=== PATIENT | female | born 1960 ===

== ENCOUNTER 2025-07-16 12:58 | Inpatient (IN) | payer MEDICARE, MEDICAID, SELFPAY ==
--- OUTSIDE RECORDS SUMMARY | 2025-07-14 13:57 | XMS_ITS | Encounter Summary ---
Author Organization [facility] Address [address] [place] [address] Care Team Providers Care Leak Operator [employer] Name Role Phone Abdoul Marques MD Primary Care Provider [phone] Reason for Referral * Eval and Treat (Routine) - Open Specialty Diagnoses / Procedures Referred By Bennie t Referred To Contact Trauma Surgery / General Surgery Diagnoses Hematoma Procedures NV OFFICE/OUTPATIENT ESTABLISHED MOD MDM 30 MIN NV OFFICE/OUTPATIENT NEW MODERATE MDM 45 MINUTES Christopher Mathis DO [address] [address] Phone: tel: fax: [facility] General [facility] Tra[facility] Surgery-[address] [place] [address] Phone: tel: fax: Referral ID Status Reason Start Date Expiration Date Visits Re quested Visits Authorized [id number] Open 07/14/2025 07/15/2026 1 1 Reason for Visit * Reason Comments Wound Check RLE Encounter Details Date Type Department Care Team (Late st Contact Info) Description 07/14/2025 1:57 PM CDT - 07/14/2025 7:52 PM CDT Emergency [facility] Emergency Medicine [address] [place] [address] Christopher Mathis DO [address] [phone] Keven Kim, [address] [place] [address] [address] [phone] Hematoma (Primary Dx) Discharge Disposition: Home or Self Care Social History Tobacco Use Types Packs/Day Years Used Date Smoking Tobacco: Every Day Cigarettes 1 50.7 Started: 1974 Passive Smoke Exposure: Current Smokeless Tobacco: Never Alcohol Use Standard Drinks/Week Comments Yes 42 (1 standard drink = 0.6 oz pu re alcohol) Feeling Safe Answer Date Recorded Are you in a relationship wi th someone who hurts you emotionally and/or physically? No 07/14/2025 Comments No Sex and Gender Information Value Date Recorded Sex Assigned at Not on file Legal Sex Female 12:55 PM CDT Gender Identity Not on file Sexual Orientation Not on file documented as of this encounter Last Filed Vital Signs Vital Sign Reading Time Taken Comments Blood Pressure 114/74 07/14/2025 7:30 PM CDT Pulse 66 07/14/2025 7:30 PM CDT Temperature 35.9 C (96.6 F) 07/14/2025 1:59 PM CDT Respiratory Rate 16 07/14/2025 7:30 PM CDT Oxygen Saturation 99% 07/14/2025 7:30 PM CDT Inhaled Oxygen Concentration - - Weight 61.7 kg (136 lb) 07/14/2025 1:59 PM CDT Height 160 cm (5' 3 ) 07/14/2025 1:59 PM CDT Body Mass Index 24.09 07/14/2025 1:59 PM CDT documented in this encounter Discharge Instructions * Discharge Instructions* Keven Kim DO - 07/14/2025 7:32 PM CDT Please take [id number] Motrin, ibuprofen, alternating with acetaminophen/Tylenol every 4 hours as needed for pain. The sulfamethoxazole-trimethoprim/Bactrim DS has been E prescribed to the [facility] pharmacy in [place] When using antibiotics please take [id number] probiotics and/or yogurt to help prevent diarrhea and yeast infections. * Attachments The following attachments cannot be sent through Care Everywhere. * Contusion (Burundian) * Care for a Skin Wound: Video (Burundian) * RICE: General Info (Burundian) * Antibiotics: General Info (Burundian) documented in this encounter Medications at Time of Discharge sulfamethoxazole-t rimethoprim (BACTRIM DS) 800-160 mg tablet Take 1 Tablet by mouth 2 times daily for 7 days. 14 Tablet 07/14/2025 07/21/2025 metoprolol succinate (TOPROL XL) 100 mg Extended Release 24 hour tabletIndications: Benign hypertension Take 1 Tablet (100 mg) by mouth daily with breakfast. 90 Tablet 3 06/05/2025 documented as of this encounter ED Notes * Noah Ca RN - 07/14/2025 6:[address] Mathis calling [facility] * Noah Ca RN - 07/14/2025 6:[address] [facility] * Noah Ca RN - 07/14/2025 6:02 PM CDT Patient's daughter requested this RN into the room. Entered room to find patient developing a red rash throughout her body and complaining of itching. Stopped Vancomycin immediately and notified Dr Mathis. * Margi Suarez RN - 07/14/2025 4:20 PM CDT Patient transported via wheelchair. Patient transported to [place] with Tech. * Noah Ca RN - 07/14/2025 2:15 PM CDT Trinidad Gibbs 65 y.o. female, arrived to the ED via TRANSPORTATION: private vehicle for complaints of Chief Complaint Patient presents with Wound Check RLE This patient arrives with her daughter for a Wound Check for a wound on her Right AnteroLateral Vela. Patient ambulates well to room without signs of distress. States she has recently started a workup for poor lower extremity circulation. States approximately 3 weeks ago was outside and misjudged astep down and fell approximately 1 foot to a lower ledge scraping the Right Anterior Vela on a piece of wood. Reports she was not evaluated after the incident. Patient does have a hematoma with multiple scabs to the Right Anterolateral Vela. Reports occasional bleeding from the scabs, denies any purulent drainage, fevers, or other injuries from the incident. Vitals taken, patient placed on monitor, clothing removed as needed per policy, privacy provided to patient. Respiratory: WDL - Regular rhythm, symmetrical chest expansion, no dyspnea , Cardiac/Circulatory: WDL - No numbness or tingling, no chest pain , Skin: Swelling and Hematoma, patient is Alert and Oriented x4, pain scale: 10/10, christina etllo; bleeding: without any bleeding noted. Behavior during evaluation: appropriate. Belongings secured, patient Weapons assessment: denied possession of any weapons or firearms at this time. Patient comforted, all questions answered to the best of the staff's ability, education performed, and left patient in the room with the call light in reach, bed in lowest position, wheels locked, side rails up. * Keven Kim DO - 07/14/2025 1:55 PM CDT Images from the original note were not included. HISTORY OF PRESENT ILLNESS History of Present Illness The patient presents for a wound on her leg. She is accompanied by her daughter. The patient has been dealing with this wound for approximately 3 weeks. Despite being cautious not to bump it, the wound began to ooze yesterday. Upon inspection, she found that the scab had adhered to her pants. The wound has been leaking for over a week, but she reports no fever or chills. She describes an unusual sensation since the infection was released. The wound has been draining a dark fluid, but she has not noticed any purulent. She also mentions bruising around the wound and swelling in her foot, which has since subsided. She suspects that there might be a foreign object lodged in her leg. The pain from the wound disrupts her sleep. She has not taken any antibiotics for this condit ion. The patient consumes several beers daily but does not experience withdrawal symptoms when she abstains. She reports no liver issues. Occupation: disabled Alcohol: The patient consumes several beers daily. Sleep: The pain from the wound disrupts her sleep. PAST SURGICAL HISTORY: She has a history of a large kidney stone, which was treated with lithotripsy. PAST MEDICAL HISTORY REVIEWED MEDICAL: Patient has a past medical history of Hypertension. SURGICAL: Patient has a past surgical history that includes spinal surgery; shoulder arthroscopy (Right); knee arthroscopy (Left); ureteral stent placement; tubal ligation; and trigger finger repair (Right). ALLERGIES Codeine and Vancomycin PHYSICAL EXAM INITIAL VS BP: (!) 156/70 (07/14/25 135), Heart Rate: 83 bpm (07/14/251358), Resp: 15 (07/14/251358), Pulse: 65 (07/14/25 1430), Temp: (!) 96.6 ??F (35.9 ??C) (07/14/251358), Temp src: Temporal (07/14/251358), SpO2: 100 % (07/14/251358), Height: 5' 3 (160 cm) (07/14/251358), Weight: 61.7 kg (136 lb) (0 07/14/251358), BMI (Calculated): 24.1 (07/14/251358) No LMP recorded. Patient is postmenopausal. Blood pressure 114/74, pulse 66, temperature (!) 96.6 ??F (35.9 ??C), temperature source Temporal, resp. rate 16, height 5' 3 (1.6 m), weight 61.7 kg (136 lb), SpO2 99%. Physical Exam Physical Exam Extremities: Swelling and bruising noted in the foot. Presence of a wound on the leg with clear fluid drainage and signs of infection. Warmth noted in the area surrounding the wound. Skin: Presence of a wound on the leg with clear fluid drainage and signs of infection. Warmth notedin the area surrounding the wound. DIAGNOSTICS LAB: CBC WITH DIFFERENTIAL - Abnormal Result Value WBC 13.3 (*) RBC 4.69 HEMOGLOBIN 14.6 HEMATOCRIT 42.0 MCV 89.6 MCH 31.1 MCHC 34.8 RDW 13.2 RDW-STDEV 43.3 PLATELETS 452 (*) MPV 9.2 (*) NEUTROPHILS 75 (*) LYMPHOCYTES 14 (*) MONOCYTES 9 EOSINOPHILS 1 BASOPHILS 0 IMMATURE GRANULOCYTES 0 NEUTROPHIL ABSOLUTE 9.98 (*) LYMPHOCYTE ABSOLUTE 1.83 MONOCYTE ABSOLUTE 1.25 (*) EOSINOPHIL ABSOLUTE 0.12 BASOPHILS ABSOLUTE 0.04 IMMATURE GRANULOCYTES ABSOLUTE 0.05 COMPREHENSIVE METABOLIC PANEL - Abnormal SODIUM 137 POTASSIUM 4.0 CHLORIDE 99 CO2 25 CALCIUM 9.4 BUN 12 CREATININE 0.72 GLUCOSE 91 TOTAL PROTEIN 8.5 ALBUMIN 4.6 BILIRUBIN TOTAL 0.5 ALKALINE PHOSPHATASE 119 (*) AST 24 ALT <5 GFR >60 ANION GAP 13 LACTIC ACID - Normal LACTIC ACID 1.8 MAGNESIUM LEVEL - Normal MAGNESIUM 1.7 ANAEROBIC/AEROBIC CULTURE W GRAM STAIN MRSA PCR RAPID SCREEN BLOOD CULTURE BLOOD CULTURE BLOOD CULTURE BLOOD CULTURE RADIOLOGY: CT LOW EXT W CONTRAST RIGHT Radiologist Impression IMPRESSION: Large subcutaneous suspected fluid collection is seen at the site of interest that shows rim enhancement and intermediate attenuation. Leading differential considerations include a hematoma especially if there has been recent trauma versus an abscess. Ultrasound is recommended for further characterization. Ultimately aspiration may be needed. EKG: PROCEDURES Procedures MEDICAL DECISION MAKING AND PLAN OF CARE Assessment & Plan 1. Leg wound: - The leg wound has been leaking for more than a week and appears to be infected, potentially with an underlying abscess. - The physical exam reveals warmth in the area, swelling, and a pocket of fluid under the skin. - A CT scan of the leg will be ordered to assess the extent of the infection. Blood work, includinga CBC and infection markers, will be conducted to monitor for systemic infection. If the CT scan confirms a deep abscess, a surgical consultation will be necessary for potential incision and drainage. 2. Alcohol abuse: - The patient reports drinking several beers every day but has not experienced any withdrawal symptoms or liver issues. No immediate intervention is planned, but monitoring for any potential complications will be necessary. ED Course as of 07/14/251940Jul 14, [address] scan results came back and went to speak with the patient. I received this patient from the nurse practitioner who left a little while ago at the end of her shift. No concern more for hematoma based on the appearance on CT scan versus abscess. She is a very minimal white count. No fevers. There is some redness but the drainage is more bloody fluid. After discussed with her about 3 weeks ago she had an injury where her leg was crushed between a trailer and has been swollen ever since. She states that it started to drain could have a dark discolored looking blood over the last couple of days after one of her scabs fell off. The pain is not increased. The swelling is not increased. She has a little bit more redness after catching her scab and pulling it back on her jeans the other day. Patient did receive IV antibiotics while waiting labs or results based on the appearance however at this time it seems to be more of a hematoma. She did have a rash and itching at the end of her vancomycin so we stopped and gave her some Benadryl. She is not anaphylaxis appears well. [MH] ED Course User Index [MH] Christopher Mathis, DO Medical Decision Making Discussed results, including the CT, with the patient. Also discussed need to follow-up with Dr. Welch, for wound care, possible I&D/drainage of the wound. Amount and/or Complexity of Data Reviewed Labs: ordered. Radiology: ordered. Discussion of management or test interpretation with external provider(s): Dr. Wells orthopedist, advised follow-up with wound clinic. Transfer nurse stated that Dr. Shar Welch, was on-call. A referral has been ordered to his office. Risk OTC drugs. Prescription drug management. Clinical Scoring & Consults Medications Administered During the ED Stay from 07/14/2025 1356 to 07/14/20251940 Date/Time Order Dose Route Action 07/14/2025 1704 CDT sodium chloride flush injection 5 mL 5 mL IV Given 07/14/2025 1549 CDT oxyCODONE-acetaminophen (PERCOCET) 5-325 mg per tablet 1 Tablet 1 Tablet Oral Given 07/14/2025 1802 CDT vancomycin (VANCOCIN) 1,000 mg in sodium chloride 0.9 % 250 mL IVPB 0 mg IV Stopped 07/14/2025 1705 CDT vancomycin (VANCOCIN) 1,000 mg in sodium chloride 0.9 % 250 mL IVPB 1,000 mg IVNew Bag 07/14/2025 1708 CDT cefePIME (MAXIPIME) 1,000 mg in sodium chloride 0.9 % 50 mL IVPB 0 mg IV Stopped 07/14/2025 1638 CDT cefePIME (MAXIPIME) 1,000 mg in sodium chloride 0.9 % 50 mL IVPB 1,000 mg IV New Bag 07/14/2025 1642 CDT iopamidoL (ISOVUE-300) 61% injection (single-use vial) 100 mL 100 mL IV Contrast Given 07/14/2025 1712 CDT nicotine (NICODERM CQ) 21 mg/24 hr transdermal patch 1 Patch 1 Patch Transdermal Applied 07/14/2025 1808 CDT diphenhydrAMINE (BENADRYL) injection 25 mg 25 mg IV Given . New Prescriptions for this Encounter SULFAMETHOXAZOLE-TRIMETHOPRIM (BACTRIM DS) 800-160 MG TABLET Take 1 Tablet by mouth 2 times daily for 7 days. LAST VS BP: 114/74 (07/14/251929), Heart Rate: 83 bpm (07/14/251358), Resp: 16 (07/14/251929), Pulse: 66(07/14/251929), Temp: (!) 96.6 ??F (35.9 ??C) (07/14/25 135), Temp src: Temporal (07/14/251358),SpO2: 99 % (07/14/251929) CLINICAL IMPRESSION Diagnosis Diagnosis Comment Added By Time Added Hematoma [T14.8XXA] Right leg: large subcutaneous suspected fluid collection Christopher Mathis DO 07/14/2025 7:22 PM DISPOSITION, EDUCATION AND MEDICATION RECONCILIATION Medications reconciled. See after visit summary for patient education on discharged patients. ED Disposition ED Disposition Discharge Condition Stable User Keven Kim DO Date/Time Sat Jul 14, 2025 7:39 PM Comment -- documented in this encounter Miscellaneous Notes * Gen AI WINNIE - GENERATIVE AI HANDOFF NOTE - 07/14/2025 8:40 PM CDT ## ER_course: ## # DIAGNOSIS: Hematoma in the right leg with a large subcutaneous suspected fluid collection. The patient, Trinidad Gibbs, a 65-year-old female, presented to the ED with a wound on her right anterolateral vela, which had been leaking for over a week. She reported a fall approximately three weeks ago, resulting in a hematoma with multiple scabs. The wound began to ooze and was suspected to have an underlying abscess. The patient experienced pain rated at 10/10, disrupting her sleep, and reported occasional bleeding from the scabs. # Abnormal findings included a high WBC count of 13.3, elevated platelets at 452, and a CT scan showing a large subcutaneous fluid collection with rim enhancement, suggesting a hematoma or abscess. # Medications administered during the ED stay included IV antibiotics (vancomycin and cefepime), which were stopped due to a rash and itching, and Benadryl was given. The patient was also given oxycodone-acetaminophen for pain and a nicotine patch. # The final impression was more consistent with a hematoma rather than an abscess, and the patient was discharged in stable condition. ## Follow_up_orders: ## # The patient was prescribed sulfamethoxazole-trimethoprim (Bactrim DS) 800-160 mg tablet to be taken twice daily for 7 days. # A follow-up with Dr. Welch for wound care and possible incision and drainage of the wound was recommended. A referral to Dr. Welch's office was ordered. # An ultrasound was recommended for further characterization of the fluid collection, and aspiration may be needed (PENDING AT DISCHARGE). ## Home_Situation: ## # The patient was accompanied by her daughter, indicating some level of caregiver support. No specific transportation or financial issues were noted in the ER notes. documented in this encounter Plan of Treatment Pending Results Name Type Priority Associated Diagnoses Date /Time ANAEROBIC/AEROBIC CULTURE W GRAM STAIN Microbiology Stat 07/14/2025 3:16 PM CDT BLOOD CULTURE Microbiology Stat 5 2:55 PM CDT BLOOD CULTURE Microbiology Stat 5 3:00 PM CDT BLOOD CULTURE Microbiology Stat 2:55 PM CDT BLOOD CULTURE Microbiology Stat 3:00 PM CDT Scheduled Orders Name Type Priority Associated Diagnoses Orde r Schedule BLOOD CULTURE Microbiology Routine ONE TIME for 1 Occurrences starting 07/14/2025 until 07/14/2025 BLOOD CULTURE Microbiology Routine ONE TIME for 1 Occurrences starting 07/14/2025 until 07/14/2025 BLOOD CULTURE Microbiology Stat Once for 1 Occurrences starting 07/14/2025 until 07/14/2025, 1 completed BLOOD CULTURE Microbiology Stat Once for 1 Occurrences starting 07/14/2025 until 07/14/2025 Scheduled Referrals Name Type Priority Associated Diagnoses Orde r Schedule AMB REFERRAL TO GENERAL SURGERY Outpatient Referral Routine Hematoma Ordered: 07/14/2025 documented as of this encounter Procedures Procedure Name Priority Date/Time Associated Diagnosis Comments CT LOW EXT W CONTRAST RIGHT Stat 07/14/2025 4:42 PM CDT MRSA PCR RAPID SCREEN Stat 07/14/2025 3:55 PM CDT ANAEROBIC/AEROBIC CULTURE W GRAM STAIN Stat 07/14/2025 3:16 PM CDT LACTIC ACID Stat 07/14/2025 2:55 PM CDT CBC WITH DIFFERENTIAL Stat 07/14/2025 2:55 PM CDT MAGNESIUM LEVEL Stat 07/14/2025 2:55 PM CDT COMPREHENSIVE METABOLIC PANEL Stat 07/14/2025 2:55 PM CDT documented in this encounter Results * CT LOW EXT W CONTRAST RIGHT (07/14/2025 4:42 PM CDT) Anatomical Region Laterality Modality Lower Extremity Computed Tomogra phy 07/14/2025 4:15 PM CDT Impressions 07/14/2025 5:43 PM CDT IMPRESSION: Large subcutaneous suspected fluid collection is seen at the site of interest that shows rim enhancement and intermediate attenuation. Leading differential considerations include a hematoma especially if there has been recent trauma versus an abscess. Ultrasound is recommended for further characterization. Ultimately aspiration may be needed. Narrative 07/14/2025 5:[address] LOW EXT W CONTRAST RIGHT 07/14/2025 4:42 PM Reason For Exam: Soft tissue mass, lower leg, deep. Diagnosis: See Reason for Exam. COMPARISON: None Nonionic IV contrast was utilized FINDINGS: No acute fracture, subluxation, dislocation, or destructive osseous lesion is seen. Joint spaces are preserved. Along the anterior portion of the lower extremity there is a rim-enhancing subcutaneous 5.9 x 2.2 x 8.9 cm suspected complex fluid collection. Mild adjacent subcutaneous stranding is noted. Procedure Note Sen Payne MD - 07/14/2025 CT LOW EXT W CONTRAST RIGHT 07/14/2025 4:42 PM Reason For Exam: Soft tissue mass, lower leg, deep. Diagnosis: See Reason for Exam. COMPARISON: None Nonionic IV contrast was utilized FINDINGS: No acute fracture, subluxation, dislocation, or destructive osseous lesion is seen. Joint spaces are preserved. Along the anterior portion of the lower extremity there is a rim-enhancing subcutaneous 5.9 x 2.2 x 8.9 cm suspected complex fluid collection. Mild adjacent subcutaneous stranding is noted. IMPRESSION: Large subcutaneous suspected fluid collection is seen at the site of interest that shows rim enhancement and intermediate attenuation. Leading differential considerations include a hematoma especially if there has been recent trauma versus an abscess. Ultrasound is recommended for further characterization. Ultimately aspiration may be needed. Brunilda Holguin [facility] CT ORDERABLES Final Resul t * (ABNORMAL) MRSA PCR RAPID SCREEN (07/14/2025 3:55 PM CDT) MRSA PCR RESULT MRSA detected( A) MRSA not detected 07/15/2025 6:06 PM CDT [facility] Surveillance ANTERIOR NARES SWAB / Unknown 07/14/2025 3:55 PM CDT 07/14/2025 3:58 PM CDT Narrative [facility] - 07/15/2025 6:06 PM CDT MRSA detected called to [facility] by ORIANA CARTAGENA on 07/15/2025 at 6:05 PM with verbal readback. This assay is used to detect Methicillin-Resistant S. aureus (MRSA) colonization of the nares. PLEASE NOTE: This test has not been approved to monitor effectiveness of MRSA decolonization. Residual DNA may temporarily be present after successful decolonization. This test was performed using an FDA approved screening methodology. [facility] MICROBIOLOGY - GENERAL ORDE RABLES Final Result Performing Organization Address [facility] Co de Phone Number [facility] CLIA # [id number] [address] [address] * MAGNESIUM LEVEL (07/14/2025 2:55 PM CDT) MAGNESIUM 1.7 1.6 - 2.4 mg/dL 07/14/2025 3:30 PM CDT [facility] Blood Venipuncture / Unknown 07/14/2025 2:55 PM CDT 07/14/2025 3:09 PM CDT [facility] CHEMISTRY ORDERABLES Final Result Performing Organization Address [facility] Co de Phone Number [facility] CLIA # [id number] [address] [place] [id number] * LACTIC ACID (07/14/2025 2:55 PM CDT) LACTIC ACID 1.8 <=2.0 mmol/L 07/14/2025 3:30 PM CDT [facility] Blood BLOOD SPECIMEN / Unknown Venipuncture / Unknown 07/14/2025 2:55 PM CDT 07/14/2025 3:12 PM CDT [facility] CHEMISTRY ORDERABLES Final Result Performing Organization Address [facility]/ZIP Co de Phone Number [facility] CLIA # [id number] [address] [place] [id number] * (ABNORMAL) COMPREHENSIVE METABOLIC PANEL (07/14/2025 2:55 PM CDT) [facility] SODIUM 137 136 - 145 mmol/L 07/14/2025 3:[address] [facility] POTASSIUM 4.0 3.5 - 5.1 mmol/L 07/14/2025 3:[address] [facility] CHLORIDE 99 98 - 107 mmol/L 07/14/2025 3:[address] [facility] CO2 25 22 - 29 mmol/L 07/14/2025 3:[address] [facility] CALCIUM 9.4 8.8 - 10.2 mg/dL 07/14/2025 3:[address] [facility] BUN 12 8 - 23 mg/dL 07/14/2025 3:[address] [facility] CREATININE 0.72 0.51 - 0.95 mg/dL 07/14/2025 3:[address] [facility] GLUCOSE 91 74 - 99 mg/dL 07/14/2025 3:[address] [facility] TOTAL PROTEIN 8.5 6.6 - 8.7 g/dL 07/14/2025 3:[address] [facility] ALBUMIN 4.6 3.5 - 5.2 g/dL 07/14/2025 3:[address] [facility] BILIRUBIN TOTAL 0.5 0.0 - 1.2 mg/dL 07/14/2025 3:[address] [facility] ALKALINE PHOSPHATASE 119(H) 35 - 104 U/L 07/14/2025 3:[address] [facility] AST 24 0 - 35 U/L 07/14/2025 3:[address] [facility] ALT <5 0 - 35 U/L 07/14/2025 3:[address] [facility] GFR >60 >=60 mL/min/1.7 3 sq meter 07/14/2025 3:[address] [facility] Comment:eGFR calculated with 2020 CKD-EPI equation. Vegetarian diet, extremely high or low muscle mass, and may affect results. Cystatin C with Glomerular Filtration Rate is a suitable alternative for these patients. ANION GAP 13 5 - 20 mmol/L 07/14/2025 3:[address] [facility] Blood Venipuncture / Unknown 07/14/2025 2:55 PM CDT 07/14/2025 3:09 PM CDT Brunilda Yan [facility] CHEMISTRY ORDERABLES Final Result [facility] CLIA # [id number] [address] [place] [id number] * (ABNORMAL) CBC WITH DIFFERENTIAL (07/14/2025 2:55 PM CDT) WBC 13.3(H) 4.0 - 10.0 K/uL 07/14/2025 3:[address] [facility] RBC 4.69 3.93 - 5.22 M/uL 07/14/2025 3:[address] [facility] HEMOGLOBIN 14.6 11.2 - 15.7 g/dL 07/14/2025 3:[address] [facility] HEMATOCRIT 42.0 34.1 - 44.9 % 07/14/2025 3:[address] [facility] MCV 89.6 79.4 - 94.8 fL 07/14/2025 3:[address] [facility] MCH 31.1 25.6 - 32.2 pg 07/14/2025 3:[address] [facility] MCHC 34.8 32.2 - 35.5 g/dL 07/14/2025 3:[address] [facility] RDW 13.2 11.0 - 14.5 % 07/14/2025 3:[address] [facility] RDW-STDEV 43.3 36.9 - 56.9 fL 07/14/2025 3:16 PM [facility] [facility] PLATELETS 452(H) 163 - 337 K/uL 07/14/2025 3:[address] [facility] MPV 9.2(L) 10.0 - 14.8 fL 07/14/2025 3:[address] [facility] NEUTROPHILS 75(H) 34 - 71 % 07/14/2025 3:[address] [facility] LYMPHOCYTES 14(L) 19 - 52 % 07/14/2025 3:[address] [facility] MONOCYTES 9 5 - 13 % 07/14/2025 3:16 PM T [facility] EOSINOPHILS 1 1 - 6 % 07/14/2025 3:[address] [facility] BASOPHILS 0 0 - 1 % 07/14/2025 3:[address] [facility] IMMATURE GRANULOCYTES 0 % 07/14/2025 3:[address] [facility] NEUTROPHIL ABSOLUTE 9.98(H) 1.56 - 6.13 K/uL 07/14/2025 3:[address] [facility] LYMPHOCYTE ABSOLUTE 1.83 1.20 - 3.40 K/uL 07/14/2025 3:[address] [facility] MONOCYTE ABSOLUTE 1.25(H) 0.24 - 0.36 K/uL 07/14/2025 3:[address] [facility] EOSINOPHIL ABSOLUTE 0.12 0.04 - 0.36 K/uL 07/14/2025 3:[address] [facility] BASOPHILS ABSOLUTE 0.04 0.01 - 0.08 K/uL 07/14/2025 3:[address] [facility] IMMATURE GRANULOCYTES ABSOLUTE 0.05 K/uL 07/14/2025 3:[address] [facility] Blood Venipuncture / Unknown 07/14/2025 2:55 PM CDT 07/14/2025 3:12 PM CDT Brunilda Yan [employer]OX TRUCK DRIVER HEMATOLOGY ORDERABLES Final Result [facility] CLIA # [id number] [address] [place] [address] documented in this encounter Visit Diagnoses Diagnosis Hematoma- Primary Contusion of unspecified site documented in this encounter Administered Medications Inactive Administered Medications - up to 3 most recent administrations Medication Order MAR Action Action Date Dose Rate Site cefePIME (MAXIPIME) 1,000 mg in sodium chloride 0.9 % 50 mL IVPB 1,000 mg, IV, ONE TIME ONLY, 1 dose, On 07/14/25 at 1545, Routine, Antibiotic Indication: Wound / Cellulitis / Abscess New Bag 07/14/2025 4:38 PM CDT 1,000 mg 118 mL/hr diphenhydrAMINE (BENADRYL) injection 25 mg 25 mg, IV, ONE TIME ONLY, 1 dose, On 07/14/25 at 1815, Routine Given 07/14/2025 6:08 PM CDT 25 mg iopamidoL (ISOVUE-300) 61% injection (single-use vial) 100 mL 100 mL, IV, INTRA-PROCEDURE ONCE, 1 dose, Starting on 07/14/25 at 1612, Until 07/14/25 at 1642, Routine Contrast Given 07/14/2025 4:42 PM CDT 100 mL nicotine (NICODERM CQ) 21 mg/24 hr transdermal patch 1 Patch 1 Patch, Transdermal, DAILY, First dose on 07/14/25 at 1715, Until Discontinued, Stat Applied 07/14/2025 5:12 PM CDT 1 Patch Shoulder, Right oxyCODONE-acetaminoph en (PERCOCET) 5-325 mg per tablet 1 Tablet 1 Tablet, Oral, ONE TIME ONLY, 1 dose, On 07/14/25 at 1545, Stat Given 07/14/2025 3:49 PM CDT 1 Tablet sodium chloride flush injection 5 mL 5 mL, IV, SEE ADMIN INSTRUCTIONS, Starting on 07/14/25 at 1430, Until 07/14/25 at 2152, Routine Given 07/14/2025 5:04 PM CDT 5 mL sulfamethoxazole-trim ethoprim (BACTRIM DS) 800-160 mg per tablet 1 Tablet 1 Tablet, Oral, ONE TIME ONLY, 1 dose, On 07/14/25 at 1945, Routine, Antibiotic Indication: Wound / Cellulitis / Abscess Given 07/14/2025 7:47 PM CDT 1 Tablet vancomycin (VANCOCIN) 1,000 mg in sodium chloride 0.9 % 250 mL IVPB 1,000 mg, IV, ONE TIME ONLY, 1 dose, On 07/14/25 at 1545, Routine, Antibiotic Indication: Wound / Cellulitis / Abscess New Bag 07/14/2025 5:05 PM CDT 1,000 mg 285 mL/hr documented in this encounter Active and Recently Administered Medications Times are shown in CDT. Scheduled Medication Order 07/12/2025 07/13/2025 07/14/2025 cefePIME (MAXIPIME) 1,000 mg in sodium chloride 0.9 % 50 mL IVPB (COMPLETED) 1,000 mg, IV, ONE TIME ONLY, 1 dose, On 07/14/25 at 1545, Routine, Antibiotic Indication: Wound / Cellulitis / Abscess 1638 (New Bag - Prov ider: Noah Ca RN)1708 (Stopped - Provider: Noah Ca RN) diphenhydrAMINE (BENADRYL) injection 25 mg (COMPLETED) 25 mg, IV, ONE TIME ONLY, 1 dose, On 07/14/25 at 1815, Routine 1808 (Given - Provid er: Noah Ca RN) iopamidoL (ISOVUE-300) 61% injection (single-use vial) 100 mL (COMPLETED) 100 mL, IV, INTRA-PROCEDURE ONCE, 1 dose, Starting on 07/14/25 at 1612, Until 07/14/25 at 1642, Routine 1642 (Contrast Given - Provider: Ginna Faustin, RT) nicotine (NICODERM CQ) 21 mg/24 hr transdermal patch 1 Patch 1 Patch, Transdermal, DAILY, First dose on 07/14/25 at 1715, Until Discontinued, Stat 1712 (Applied - Prov ider: Noah Ca RN)1952 (Due: Removed - Provider: PROVIDER, DISCHARGE PATIENT - Comment: Time automatically adjusted from order being discontinued) oxyCODONE-acetaminophen (PERCOCET) 5-325 mg per tablet 1 Tablet (COMPLETED) 1 Tablet, Oral, ONE TIME ONLY, 1 dose, On 07/14/25 at 1545, Stat 1549 (Given - Provid er: Noah Ca RN) sodium chloride flush injection 5 mL(Linked Group 1) 5 mL, IV, SEE ADMIN INSTRUCTIONS, Starting on 07/14/25 at 1430, Until 07/14/25 at 2151, Routine 1704 (Given - Provid er: Noah Ca RN) sulfamethoxazole-trimethoprim (BACTRIM DS) 800-160 mg per tablet 1 Tablet (COMPLETED) 1 Tablet, Oral, ONE TIME ONLY, 1 dose, On 07/14/25 at 1945, Routine, Antibiotic Indication: Wound / Cellulitis / Abscess 1946 (Given - Provid er: Jolene Houston RN) vancomycin (VANCOCIN) 1,000 mg in sodium chloride 0.9 % 250 mL IVPB (COMPLETED) 1,000 mg, IV, ONE TIME ONLY, 1 dose, On 07/14/25 at 1545, Routine, Antibiotic Indication: Wound / Cellulitis / Abscess 1704 (New Bag - Prov ider: Noah Ca RN)1802 (Stopped - Provider: Noah Ca RN - Comment: Stopped due to suspected allergic reaction; Dr Mathis aware) Linked Groups Order Group 1: SALINE LOCK IV Now (COMPLETED) Routine, ONE TIME, On 07/14/25 at 1435, For 1 occurrence, When: Now And sodium chloride flush injection 5 mLJump to med 5 mL, IV, SEE ADMIN INSTRUCTIONS, Starting on 07/14/25 at 1430, Until 07/14/25 at 2151, Routine documented in this encounter Care Teams Leak Operator Paraffin Plant Relationship Specialty Start Date End Date Abdoul Marques MD [address] [address] PCP - General Family Practice 06/05/25 documented as of this encounter
[2025-07-16 13:04] VITALS: BP 112/78; PULSE 79; TEMP 36.7; O2SAT 98; BMI 23.5
--- OUTSIDE RECORDS SUMMARY | 2025-07-16 13:04 | XMS_ITS | Clinical Summary ---
Author Organization [facility] [employer] rainey [place] Address [address] [place] [address] Phone Care Team Providers Care Bundler Seasonal Greenery Name Role Phone Abdoul Marques MD Primary Care Provider [phone] Allergies Active Allergy Reactions Criticality Noted Date Comments Codeine Nausea and Vomiting Low 07/14/2025 Vancomycin Rash,Itching Low 07/14/2025 Medications metoprolol succinate (TOPROL XL) 100 mg Extended Release 24 hour tabletIndications :Benign hypertension Take 1 Tablet (100 mg) by mouth daily with breakfast. 90 Tablet 3 06/05/2025 Active sulfamethoxazole- trimethoprim (BACTRIM DS) 800-160 mg tablet Take 1 Tablet by mouth 2 times daily for 7 days. 14 Tablet 07/14/2025 07/21/20 25 Active Active Problems No known active problems Encounters Date Type Department Care Team Description 07/16/2025 Results Follow-Up [facility] Emergency Medicine [address] [address] [place] [address] Brunilda Yan FNP ANAEROBIC/AEROBIC CULTURE W GRAM STAIN, MRSA PCR RAPID SCREEN 07/14/2025 1:57 PM CDT - 07/14/2025 7:52 PM CDT Emergency [facility] Emergency Medicine [address] [place] [address] Christopher Mathis, Kim, Keven Y, Hematoma (Primary Dx) Discharge Disposition: Home or Self Care 07/14/2025 Travel 06/22/2025 Results Follow-Up [facility] Medicine [place] [address] [facility] [address] [place] [id number] Blanche Ortega FNP US ANKLE PRESSURE INDEX 06/21/2025 3:45 PM CDT - 06/21/2025 11:59 PM CDT Hospital Encounter [facility] [address] [place] [phone] Janna Matthews FNP Discharge Disposition: Home or Self Care 06/13/2025 External Device Data STL ABSTRACTION Provider, Abstract 06/12/2025 External Device Data ST[place] ABSTRACTION Provider, Abstract 06/12/2025 External Device Data [place] ABSTRACTION Provider, Abstract 06/05/2025 10:00 AM CDT Office Visit [facility] [address] [place] [id number] Janna Matthews FNP Benign hypertension (Primary Dx); Numbness and tingling of both legs; Cigarette nicotine dependence without complication; Encounter for screening for lung cancer from Last 3 Months Social History Tobacco Use Types Packs/Day Years Used Date Smoking Tobacco: Every Day Cigarettes 1 50.7 Started: 1974 Passive Smoke Exposure: Current Smokeless Tobacco: Never Tobacco Cessation:Ready to Q uit: No; Counseling Given: Yes Alcohol Use Standard Drinks/Week Comments Yes 42 [...] on file Sexual Orientation Not on file Last Filed Vital Signs Vital Sign Reading [...] Mass Index 24.09 07/14/2025 1:59 PM CDT Plan of Treatment Health Maintenance Due Date Last Done Comments FIT/ DNA Q 3 YEARS (AUTO ORDER) 1978 FIT/FOBT Q 1 YEAR (AUTO ORDER) 1978 FLEX SIG/CT COLONOGRAPHY Q 5 YEARS (AUTO ORDER) 1978 DTAP/TDAP/TD VACCINES (1 - Tdap) 1979 PNEUMOCOCCAL VACCINE 50+ YEA RS (1 of 2 - PCV) 1979 Traditional Medicare (ACO) A nnual Wellness Visit 1979 COLORECTAL CANCER SCREENING (AUTO ORDER) 2005 COLORECTAL SCREENING 2005 Colorectal Cancer Screening (AUTO ORDER) 2005 FIT-DNA Q 3 years 2005 FIT/FOBT Q 1 year 2005 Flex Sig/CT Colonography Q 5 years 2005 Lung Cancer Screening 2010 ZOSTER VACCINE (1 of 2) 2010 OSTEOPOROSIS SCREENING 2025 INFLUENZA VACCINE (#1) 2025 BREAST CANCER SCREENING 09/03/2025 Post poned from 2000 (Patient Refused) Colorectal Cancer Screening 06/05/2026 Postponed from 2005 (Patient Refused) RSV VACCINE (60+ or ) (1 - 1-dose 75+ series) 2035 Procedures Procedure Name Priority Date/Time Associated Diagnosis Comments CT LOW EXT W CONTRAST RIGHT Stat 07/14/2025 4:42 PM CDT MRSA PCR RAPID SCREEN Stat 07/14/2025 3:55 PM CDT ANAEROBIC/AEROBIC CULTURE W GRAM STAIN Stat 07/14/2025 3:16 PM CDT MAGNESIUM LEVEL Stat 07/14/2025 2:55 PM CDT LACTIC ACID Stat 07/14/2025 2:55 PM CDT COMPREHENSIVE METABOLIC PANEL Stat 07/14/2025 2:55 PM CDT CBC WITH DIFFERENTIAL Stat 07/14/2025 2:55 PM CDT US ANKLE PRESSURE INDEX Routine 06/21/2025 4:17 PM CDT Numbness and tingling of both legs from Last 3 Months Results * CT LOW EXT W CONTRAST [...] further characterization. Ultimately aspiration may be needed. [facility] CT ORDERABLES Final Resul t * (ABNORMAL) MRSA PCR RAPID SCREEN (07/14/2025 3:55 PM CDT) [facility] MRSA PCR RESULT MRSA detected( A) MRSA not detected 07/15/2025 6:06 PM CDT [facility] Surveillance ANTERIOR NARES SWAB / Unknown 07/14/2025 3:55 PM CDT 07/14/2025 3:58 PM CDT Narrative [facility] - 07/15/2025 6:06 PM CDT MRSA detected called to [facility] by ORIANA CARTAGENA on 07/15/2025 at 6:05 PM with verbal readback. This assay is used to detect Methicillin-Resistant S. aureus (MRSA) colonization of the nares. PLEASE NOTE: This test has not been approved to monitor effectiveness of MRSA decolonization. Residual DNA may temporarily be present after successful decolonization. This test was performed using an FDA approved screening methodology. [facility] MICROBIOLOGY - GENERAL ORDE RABLES Final Result Performing Organization Address City/[facility]/ZIP Co de Phone Number [facility] CLIA # [id number] [facility] [address] * LACTIC ACID (07/14/2025 2:55 PM CDT) [facility] LACTIC ACID 1.8 <=2.0 mmol/L 07/14/2025 3:30 PM CDT [facility] Blood BLOOD SPECIMEN / Unknown Venipuncture / Unknown 07/14/2025 2:55 PM CDT 07/14/2025 3:12 PM [address] [facility] CHEMISTRY ORDERABLES Final Result [facility] CLIA # [id number] [address] [id number] * (ABNORMAL) CBC WITH DIFFERENTIAL (07/14/2025 2:55 PM CDT) [facility] Signature WBC 13.3(H) 4.0 - 10.0 K/uL 07/14/2025 3:16 PM [facility] RBC 4.69 3.93 - 5.22 M/uL 07/14/2025 3:16 PM [facility] HEMOGLOBIN 14.6 11.2 - 15.7 g/dL 07/14/2025 3:16 PM [facility] HEMATOCRIT 42.0 34.1 - 44.9 % 07/14/2025 3:16 PM [facility] MCV 89.6 79.4 - 94.8 fL 07/14/2025 3:16 PM [facility] MCH 31.1 25.6 - 32.2 pg 07/14/2025 3:16 PM [facility] MCHC 34.8 32.2 - 35.5 g/dL 07/14/2025 3:16 PM [facility] RDW 13.2 11.0 - 14.5 % 07/14/2025 3:16 PM [facility] RDW-STDEV 43.3 36.9 - 56.9 fL 07/14/2025 3:16 PM [facility] PLATELETS 452(H) 163 - 337 K/uL 07/14/2025 3:16 PM [facility] MPV 9.2(L) 10.0 - 14.8 fL 07/14/2025 3:16 PM [facility] NEUTROPHILS 75(H) 34 - 71 % 07/14/2025 3:16 PM [facility] LYMPHOCYTES 14(L) 19 - 52 % 07/14/2025 3:16 PM [facility] MONOCYTES 9 5 - 13 % 07/14/2025 3:16 PM [facility] EOSINOPHILS 1 1 - 6 % 07/14/2025 3:16 PM [facility] BASOPHILS 0 0 - 1 % 07/14/2025 3:16 PM [facility] IMMATURE GRANULOCYTES 0 % 07/14/2025 3:16 PM CDT [facility] NEUTROPHIL ABSOLUTE 9.98(H) 1.56 - 6.13 K/uL 07/14/2025 3:16 PM CDT [facility] LYMPHOCYTE ABSOLUTE 1.83 1.20 - 3.40 K/uL 07/14/2025 3:16 PM CDT [facility] MONOCYTE ABSOLUTE 1.25(H) 0.24 - 0.36 K/uL 07/14/2025 3:16 PM CDT [facility] EOSINOPHIL ABSOLUTE 0.12 0.04 - 0.36 K/uL 07/14/2025 3:16 PM CDT [facility] BASOPHILS ABSOLUTE 0.04 0.01 - 0.08 K/uL 07/14/2025 3:16 PM CDT [facility] IMMATURE GRANULOCYTES ABSOLUTE 0.05 K/uL 07/14/2025 3:16 PM CDT [facility] Blood Venipuncture / Unknown 07/14/2025 2:55 PM CDT 07/14/2025 3:12 PM CDT Brunilda Yan [facility] HEMATOLOGY ORDERABLES Final Result Performing Organization Address City/[facility]/ZIP Co de Phone Number [facility] CLIA # [id number] [address] [place] [id number] * MAGNESIUM LEVEL (07/14/2025 2:55 PM CDT) MAGNESIUM 1.7 1.6 - 2.4 mg/dL 07/14/2025 3:30 PM CDT [facility] Blood Venipuncture / Unknown 07/14/2025 2:55 PM CDT 07/14/2025 3:09 PM CDT Brunilda Holguin [facility] CHEMISTRY ORDERABLES Final Result Performing Organization Address City/[facility]/ZIP Co de Phone Number [facility] CLIA # [id number] [address] [place] [address] * (ABNORMAL) COMPREHENSIVE METABOLIC PANEL (07/14/2025 2:55 PM CDT) [facility] SODIUM 137 136 - 145 mmol/L 07/14/2025 3:30 PM [facility] POTASSIUM 4.0 3.5 - 5.1 mmol/L 07/14/2025 3:30 PM [facility] CHLORIDE 99 98 - 107 mmol/L 07/14/2025 3:30 PM [facility] CO2 25 22 - 29 mmol/L 07/14/2025 3:30 PM [facility] CALCIUM 9.4 8.8 - 10.2 mg/dL 07/14/2025 3:30 PM [facility] BUN 12 8 - 23 mg/dL 07/14/2025 3:30 PM [facility] CREATININE 0.72 0.51 - 0.95 mg/dL 07/14/2025 3:30 PM [facility] GLUCOSE 91 74 - 99 mg/dL 07/14/2025 3:30 PM [facility] TOTAL PROTEIN 8.5 6.6 - 8.7 g/dL 07/14/2025 3:30 PM [facility] ALBUMIN 4.6 3.5 - 5.2 g/dL 07/14/2025 3:30 PM [facility] BILIRUBIN TOTAL 0.5 0.0 - 1.2 mg/dL 07/14/2025 3:30 PM [facility] ALKALINE PHOSPHATASE 119(H) 35 - 104 U/L 07/14/2025 3:30 PM [facility] AST 24 0 - 35 U/L 07/14/2025 3:30 PM [facility] ALT <5 0 - 35 U/L 07/14/2025 3:30 PM [facility] GFR >60 >=60 mL/min/1.7 3 sq meter 07/14/2025 3:30 PM [facility] Comment:eGFR calculated with 2020 CKD-EPI equation. Vegetarian diet, extremely high or low muscle mass, and may affect results. Cystatin C with Glomerular Filtration Rate is a suitable alternative for these patients. ANION GAP 13 5 - 20 mmol/L 07/14/2025 3:30 PM CDT [facility] Blood Venipuncture / Unknown 07/14/2025 2:55 PM CDT 07/14/2025 3:09 PM CDT us Brunilda Yan FRONT END TECHNICIAN CHEMISTRY ORDERABLES Final Result [facility] CLIA # [id number] [address] [place] [address] * US ANKLE PRESSURE INDEX (06/21/2025 4:17 PM CDT) Anatomical Region Laterality Modality Lower Extremity Ultrasound 06/21/2025 3:57 PM CDT Narrative 06/22/2025 1:37 PM CDT [facility] Noninvasive Vascular Laboratory [address] [place] [address] Noninvasive Vascular Lab Patient: Trinidad Gibbs Study ID: [id number] Gender: F : 1960 Age: 65 Room: Height: Weight: BSA: Pt status: Study Date: 06/21/2025 Study Time: 03:57:47 PM BSA: Ordering: Janna Matthews Interpreting:Melody Jarrell Attendant [facility]: [facility] Vascular Screening Summary Impression: No evidence of arterial insufficiency in the bilateral lower extremities. Ankle brachial indices Rt PT: 128mm Hg Rt DP: 112mm Hg Rt brachial: 118mm Hg Rt PT: 1.08 Rt DP: 0.94 Lt PT: 119mm Hg Lt DP: 118mm Hg Lt Brachial: 119mm Hg Lt PT: 1.00 Lt DP: 0.99 Brachial pressures: - Rt brachial pressure (sys): 118mm Hg - Lt brachial pressure (sys): 119mm Hg - Max brachial pressure (sys): 119mm Hg - Rt brachial pressure (keen): 75mm Hg - Lt brachial pressure (keen): 78mm Hg - 89 - 92 Prepared and Electronically Authenticated Melody Jarrell 06/22/2025 13:37 Procedure Note Melody Jarrell DO - 06/22/2025 [facility] Noninvasive Vascular Laboratory [address] [place] [id number] Noninvasive Vascular Lab Patient: Trinidad Gibbs Study ID: [id number] Gender: F : 1960 Age: 65 Room: Height: Weight: BSA: Pt status: Study Date: 06/21/2025 Study Time: 03:57:47 PM BSA: Ordering: Janna Matthews Interpreting:Melody Jarrell Attendant [facility]: [facility] Vascular Screening Summary Impression: No evidence of arterial insufficiency in the bilateral lowerextremities. Ankle brachial indices Rt PT: 128mm Hg Rt DP: 112mm Hg Rt brachial:118mm Hg Rt PT: 1.08 Rt DP: 0.94 Lt PT: 119mm Hg Lt DP: 118mm Hg Lt Brachial: 119mmHg Lt PT: 1.00 Lt DP: 0.99 Brachial pressures: - Rt brachial pressure (sys): 118mm Hg - Lt brachial pressure (sys): 119mm Hg - Max brachial pressure (sys): 119mm Hg - Rt brachial pressure (keen): 75mm Hg - Lt brachial pressure (keen): 78mm Hg - Prepared and Electronically Authenticated Melody Jarrell Confirmed 06/22/2025 13:37 Janna Matthews FRONT END [facility] ORDERABLES Final Re sult from Last 3 Months Insurance MEDICAID [place] MEDICARE PART A AND B Care Teams Bundler Seasonal Greenery Relationship Specialty Start Date End Date Abdoul Marques MD [address] [address] PCP - General Family Practice 06/05/25
--- OUTSIDE RECORDS SUMMARY | 2025-07-16 13:04 | XMS_ITS | Encounter Summary ---
Author Organization [employer] Address [address] [facility] Attn: [place] [address] Care Team Providers Care Zoning Assistant Name Role Phone Abdoul Marques MD Primary Care Provider [phone] Encounter Details Date Type Department Care Team (Latest Contact Info) Description 07/14/2025 Travel Social History Tobacco Use Types Packs/Day Years [...] on file documented as of this encounter Plan of Treatment Not on file documented as of this encounter Visit Diagnoses Not on filedocumented in this encounter Care Teams Zoning Assistant Relationship Specialty Start Date End Date Abdoul Marques MD [address] [facility] [address] [place] [address] PCP - General Family Practice 06/05/25 documented as of this encounter
--- OUTSIDE RECORDS SUMMARY | 2025-07-16 13:04 | XMS_ITS | Encounter Summary ---
Author Organization [facility] Address [address] [place] [address] Care Team Providers Care Child Abuse Worker Name Role Phone Abdoul Marques MD Primary Care Provider +[phone] Encounter Details Date Type Department Care Team (Late st Contact Info) Description 07/16/2025 Results Follow-Up [facility] Emergency Medicine [address] [address] Brunilda Yan FNP [address] [address] ANAEROBIC/AEROBIC CULTURE W GRAM STAIN, MRSA PCR RAPID SCREEN Social History Tobacco Use Types Packs/Day Years [...] on filedocumented in this encounter Care Teams Child Abuse Worker Relationship Specialty Start Date End Date Abdoul Marques MD [address] [address] PCP - General Family Practice 06/05/25 documented as of this encounter
--- NOTE | 2025-07-16 13:44 | W.ED.SKABFB ---
HPI - Skin/Abscess/Foreign Bdy General: Chief complaint: Skin/Abscess/Foreign Body Stated complaint: ck infection rleg surg consult Time Seen by Provider: 07/16/25 13:01 History of Present Illness: 65-year-old female presents to the emergency room 3 weeks ago she stepped on a porch she missed the step fell into a hole and scraped her right anterior tibia. Patient was seen 2 days ago at [place] culture was done and she was given IV cefepime and vancomycin. She states the pain is increased in her leg. She was started on Bactrim yesterday. She did did take the antibiotic this morning. She states she was contacted by [place] and advised to be seen because she was growing staph in the leg wound. On arrival here the wound has not been draining there is some mucousy eschar in the superior portion. Patient has a wound bandaged. She denies any active drainage. No fever at home. Associated symptoms: Deny chills or fever(s) Related Data Allergies Allergy/AdvReac Type Severity Reaction Status Date / Time nicardipine (From Cardene) Allergy Unknown Verified 07/16/25 13:08 vancomycin Allergy Unknown Verified 07/16/25 13:08 Review of Systems Const: Denies: fever(s) or chills Card: Denies: chest pain Resp: Denies: dyspnea GI: Denies: abdominal pain : Denies: dysuria, urinary frequency or urinary urgency Musc: Denies: neck pain or back pain Skin/Breast: Denies: rash Physical Exam Const: GENERAL APPEARANCE: cooperative ORIENTATION/CONSCIOUSNESS: Yes awake, Yes oriented to person, Yes oriented to place and Yes oriented to time HENMT: COMMON NORMALS: normocephalic, atraumatic and hearing grossly normal bilaterally HEAD & SCALP: normocephalic and atraumatic Resp: COMMON NORMALS: normal respiratory effort, No retractions, No use of accessory muscles and clear to auscultation bilaterally AUSCULTATION: clear to auscultation bilaterally Cardio: COMMON NORMALS: regular rate, regular rhythm and No murmurs present (Cardio) RATE: regular rate RHYTHM: regular rhythm Extremity: OTHER: Examination of the right leg just proximal to the midpoint of the tibia slightly lateral tibial spine there is a fluctuant area approximately 4 x 6 inches. No active drainage mucousy eschar superiorly. No overlying redness or erythema. Neuro: SENSORIUM/ORIENTATION: Yes oriented to person, Yes oriented to place and Yes oriented to time Skin: COMMON NORMALS: no rashes or lesions noted GENERAL SKIN EXAM: no rashes or lesions noted Course Vital Signs: Vital signs: Vital Signs Temperature 97.7 F 07/16/25 15:07 Pulse Rate 70 07/16/25 15:07 Respiratory Rate 16 07/16/25 15:07 Blood Pressure 113/71 07/16/25 15:07 Pulse Oximetry 97 07/16/25 15:07 Oxygen Delivery Me thod Room Air 07/16/25 13:04 MDM - Skin/Abscess/Foreign Bdy Medicial Decision Making Patient has abscess that has previously grown out MRSA according to the records received from [place]. She does not appear septic at this time vital signs have been stable. Started her on linezolid she reported she had flushing with vancomycin at [place]. Blood cultures done prior to starting the linezolid. Talk to Dr. Yeung who is on-call he will see the patient to incise and drain. Orders written. Medical Records I reviewed the patient's medical records. Reviewed records from [place] scanned into the chart Lab Data I reviewed the patient's lab results. 07/16/25 14:20 07/16/25 14:20 Radiology Impressions Lower Extremity CT 07/16/25 14:00 IMPRESSION: Similar size of a complex rim enhancing subcutaneous fluid collection in the anterior aspect of the upper leg, with a collection located superficial to the intramuscular compartment. This could represent an abscess in the appropriate clinical setting versus less likely evolving hematoma. Consider percutaneous sampling/drainage. No acute bony abnormality or specific CT findings to suggest osteomyelitis. Laboratory Results WBC 11.93 10^3/uL (3.29-11.43) H 07/16/25 14:20 RBC 4.05 10^6/uL (3.85-5.65) 07/16/25 14:20 Hgb 12.60 g/dL (11.27-16.99) 07/16/25 14:20 Hct 37.2 % (36-47) 07/16/25 14:20 MCV 91.9 fl (85-98) 07/16/25 14:20 MCH 31.1 pg (27-33) 07/16/25 14:20 MCHC 33.9 g/dL (30-55) 07/16/25 14:20 RDW 12.8 % (12.1-15.1) 07/16/25 14:20 Plt Count 389 10^3/cmm (157-399) 07/16/25 14:20 MPV 9.3 fL (7.4-10.4) 07/16/25 14:20 Neut % (Auto) 74.4 % 07/16/25 14:20 Lymph % (Auto) 11.4 % 07/16/25 14:20 [place] % (Auto) 11.6 % 07/16/25 14:20 Eos % (Auto) 1.7 % 07/16/25 14:20 Baso % (Auto) 0.4 % 07/16/25 14:20 Neut # (Auto) 8.88 10^3/uL (1.8-7.7) H 07/16/25 14:20 Lymph # (Auto) 1.4 10^3/uL (0.8-4.8) 07/16/25 14:20 [place] # (Auto) 1.4 10^3/uL (0.2-0.9) H 07/16/25 14:20 Eos # (Auto) 0.2 10^3/uL (0.0-0.8) 07/16/25 14:20 Baso # (Auto) 0.1 10^3/uL (0.0-0.1) 07/16/25 14:20 Nucleated RBC % (auto) 0 % 07/16/25 14:20 Nucleated RBCs # 0.0 /100WBC 07/16/25 14:20 Sodium 135 mmol/L (136-145) L 07/16/25 14:20 Potassium 4.0 mmol/L (3.5-5.1) 07/16/25 14:20 Chloride 100 mmol/L (98-107) 07/16/25 14:20 Carbon Dioxide 24 mmol/L (22-29) 07/16/25 14:20 Anion Gap 15.0 (5-19) 07/16/25 14:20 BUN 13 mg/dL (8-23) 07/16/25 14:20 Creatinine 0.9 mg/dL (0.5-0.9) 07/16/25 14:20 GFR Calculation 62.8 mL/min (90-130) L 07/16/25 14:20 Glucose 76 mg/dL (65-115) 07/16/25 14:20 Calculated Osmolality 279 mOsm/kg (285-295) L 07/16/25 14:20 Lactic Acid 1.0 mmol/L (0.5-2.2) 07/16/25 14:20 Calcium 9.8 mg/dL (8.5-10.5) 07/16/25 14:20 Total Bilirubin 0.4 mg/dL (0.15-1.2) 07/16/25 14:20 AST 10 U/L (0-32) 07/16/25 14:20 ALT 7 U/L (0-33) 07/16/25 14:20 Alkaline Phosphatase 114 U/L (35-105) H 07/16/25 14:20 C-Reactive Protein 285.2 mg/L (0.0-4.9) H 07/16/25 14:20 Total Protein 7.9 g/dL (6.6-8.7) 07/16/25 14:20 Albumin 4.1 g/dL (3.5-5.2) 07/16/25 14:20 Globulin 3.8 g/dL (1.3-4.6) 07/16/25 14:20 All radiology interpretation(s) finalized by discharge Discharge Plan Discharge Condition: Stable Print Language: Unknown Coding Level of Care Code ED [employer] for [facility]
--- NOTE | 2025-07-16 14:00 | CTR_ITS ---
PROCEDURE INFORMATION: Exam: CT Right Lower Extremity With Contrast Exam date and time: 07/16/2025 3:12 PM Age: 65 years old Clinical indication: Swelling, leg or foot; Additional info: Abscess. Weeks ago she stepped on a porch she missed the step fell into a hole and scraped her right anterior tibia. Patient was seen 2 days ago at [place] culture was done and she was given iv cefepime and vancomycin. She states the pain is increased in her leg. She was started on bactrim yesterday. TECHNIQUE: Imaging protocol: CT of the right lower extremity with intravenous contrast was performed. Radiation optimization: All CT scans at this facility use at least one of these dose optimization techniques: automated exposure control; mA and/or kV adjustment per patient size (includes targeted exams where dose is matched to clinical indication); or iterative reconstruction. COMPARISON: CT lower leg RT w con [id number] 07/14/2025 4:15 PM RADIATION DOSE METRICS: Total DLP (mGy-cm): 679.96 FINDINGS: Bones/joints: No fracture, dislocation, or destructive osseous changes. Soft tissues: A complex rim enhancing fluid collection measuring approximately 5.8 x 1.7 x 10.2 cm is again seen in the subcutaneous soft tissues along the anterior aspect of the upper leg. This collection is superficial to the intramuscular compartment and overall size of the collection appears similar to prior. Some fat density is again seen projecting into the collection with no air within it at this time. Additional generalized subcutaneous edema in the leg and visualized foot. CT/CT lower leg RT w con [id number] IMPRESSION: Similar size of a complex rim enhancing subcutaneous fluid collection in the anterior aspect of the upper leg, with a collection located superficial to the intramuscular compartment. This could represent an abscess in the appropriate clinical setting versus less likely evolving hematoma. Consider percutaneous sampling/drainage. No acute bony abnormality or specific CT findings to suggest osteomyelitis.
[2025-07-16 14:33] LABS: Hematocrit 37.2 % (36-47); Hemoglobin 12.60 g/dL (11.27-16.99); Mean Corpuscular HGB Conc 33.9 g/dL (30-55); Mean Corpuscular Hemoglobin 31.1 pg (27-33); Mean Corpuscular Volume 91.9 fl (85-98); Nucleated Red Blood Cells % 0 %; Platelet Count 389 10^3/cmm (157-399); Red Blood Count 4.05 10^6/uL (3.85-5.65); White Blood Count 11.93 10^3/uL (3.29-11.43)
[2025-07-16 14:46] LABS: Alanine Aminotransferase 7 U/L (0-33); Albumin Level 4.1 g/dL (3.5-5.2); Alkaline Phosphatase 114 U/L (35-105); Anion Gap 15.0 (5-19); Aspartate Amino Transferase 10 U/L (0-32); Blood Urea Nitrogen 13 mg/dL (8-23); Calcium 9.8 mg/dL (8.5-10.5); Carbon Dioxide 24 mmol/L (22-29); Chloride 100 mmol/L (98-107); Creatinine Clr Calc Pharmacy 56.7422; Globulin 3.8 g/dL (1.3-4.6); Glucose 76 mg/dL (65-115); Lactic Sepsis W/Reflex 1.0 mmol/L (0.5-2.2); Osmolality Calculated 279 mOsm/kg (285-295); Potassium 4.0 mmol/L (3.5-5.1); Sodium 135 mmol/L (136-145); Total Protein 7.9 g/dL (6.6-8.7)
[2025-07-16 15:07] VITALS: BP 113/71; PULSE 70; RESP 16; TEMP 36.5; O2SAT 97
[2025-07-16] MEDS: iohexol 350 mg/mL 500 mL Btl (per mL) IV (15:22)
[2025-07-16] MEDS: linezolid premix 600 MG/300 ML PREMIX 300 MG IV (16:02)
[2025-07-16 17:07] VITALS: BP 114/63; PULSE 71; RESP 16; O2SAT 96
[2025-07-16] MEDS: D5-NS 0.45% + KCL 20 mEq 20 MEQ/1,000 ML BAG 100 MEQ IV (17:20)
--- NOTE | 2025-07-16 18:42 | PM.CONSULT ---
Providers/Reason For Consult Consulting Physician/Specialty*: Dr Odlel Fine DO Reason for Consult*: Infected right leg hematoma Attending Physician: Wilbert Maldonado MD History of Present Illness History of Present Illness Trinidad Gibbs is a 65 year old female with a chief complaint of right lower leg infection. About 3 weeks ago she had a fall and developed a hematoma of her right anterior vela and this has persisted over this time it started draining some purulent material and was cultured and found to be MRSA. She was transferred to this hospital from another facility for definitive treatment. She states that she has pain in her right lower leg but does not complain of any loss of sensation or tingling. She states that she has full range of motion and can walk with no issues. She denies any fevers. She was being treated with p.o. antibiotics as an outpatient with minimal decrease in the size of the collection. She had a CT scan done in the emergency room showing an 8 x 10 cm area of hematoma versus abscess on the lateral aspect of the right vela superficial to any of the muscular compartments. She had leukocytosis with of 12 and significantly elevated CRP over 200. Other than this she is doing well and has no other complaints at this time. Review of Systems Const: Denies: fever(s) or chills Card: Denies: chest pain Resp: Denies: dyspnea GI: Denies: abdominal pain : Denies: dysuria, urinary frequency or urinary urgency Musc: Denies: neck pain or back pain Skin/Breast: Denies: rash Medications/Allergies Home Medications ?Medication ?Instructions ?Recorded ?Confirmed ?Last Taken ?Type metoprolol succinate 100 mg 100 mg PO QAM 07/16/25 07/16/25 07/16/25 08:00 History tablet,extended release 24 hr naproxen sodium 220 mg tablet 440 mg PO BID PRN Pain 07/16/25 07/16/25 07/16/25 09:00 History (Aleve) sulfamethoxazole 800 1 tab PO Q12H 07/16/25 07/16/25 07/16/25 09:00 History mg-trimethoprim 160 mg tablet (Bactrim DS) Allergies Allergy/AdvReac Type Severity Reaction Status Date / Time nicardipine (From Cardene) Allergy Unknown Verified 07/16/25 13:08 vancomycin Allergy Unknown Verified 07/16/25 13:08 Current Medications Generic Name Dose Route Start Last Admin Trade Name Marleny PRN Reason Stop Dose Admin Potassium Chloride/Dextrose/Sod Cl 20 meq in 1,000 mls @ 100 mls/hr 07/16/25 16:43 07/16/25 17:20 D5-Ns 0.45% + Kcl 20 Meq IV 100 mls/hr .Q10H RICKY Administration Vitals/I&O/Wt Last Vital Signs Temp 97.7 F 07/16/25 15:07 Pulse 71 07/16/25 17:07 Resp 16 07/16/25 17:07 BP 114/63 07/16/25 17:07 Pulse Ox 96 07/16/25 17:07 O2 Del Method Room Air 07/16/25 17:07 07/16/25 07/16/25 07/16/25 06:59 14:59 22:59 Intake Total 0 / 0 Balance 0 / 0 Weight last 48 hrs Weight 137 lb Physical Exam Narrative: General?alert and oriented x 3 in no acute distress Cardiovascular regular rate and rhythm positive S1-S2 heart sound Lungs-clear to auscultation bilaterally Abdomen-soft nontender nondistended no rebound rigidity or guarding Musculoskeletal-5+ out of 5 muscle strength in lower extremities bilaterally, no sensory deficits bilaterally, 1+ nonpitting edema in the right lower extremity with the 8 x 10 cm area of fluctuance with several eschars over the right lateral portion of her right vela, mild erythema with no drainage noted. Mild tenderness on palpation Data 07/16/25 14:20 07/16/25 14:20 Micro: Microbiology 07/16/25 14:52 Blood Culture - Preliminary Blood SPECIMEN COLLECTED 07/16/25 14:20 Blood Culture - Preliminary Blood SPECIMEN COLLECTED Other CT: My impression: Reviewed the imaging and agree with radiologist interpretation, no air in the subcu tissues noted A&P Assessment and plan 1. Traumatic hematoma of right lower leg with infection, initial encounter: Had a long discussion with the patient regarding benefits of both surgical and conservative management of her disease. With her recent culture of MRSA I think she would benefit from having an incision and drainage with washout and packing. We will do this in the morning as she does not want to have this done at bedside which I think is reasonable given the size of the area. N.p.o. after midnight. Continue with linezolid as she had a reaction to vancomycin previously. She will be admitted to the hospitalist for IV antibiotics and drainage in the morning. Continue supportive care per hospitalist team. PDMP PDMP Reviewed: Not Reviewed Coding Level of Care Code 25695 Diagnoses Traumatic hematoma of right lower leg with infection, initial encounter S80.11XA; L08.9 Encounter type: initial encounter Laterality: right
--- NOTE | 2025-07-16 20:14 | P.HP_ITS ---
Providers/Chief Complaint 2 Admitting Physician: Wilbert Maldonado MD Chief Complaint: ck infection rleg surg consult History of Present Illness Trinidad Gibbs is a 65 year old female comes in with infected tibial hematoma. 3 weeks ago she exited a friend's trailer and there was a missing board causing a gap between the trailer and the patio. Her foot fell into the space and she scraped her tibia down the board. This caused a scrape that her daughter did clean up but then she was wearing jeans that stuck to the scab that ripped off and it became infected. She went to [facility] 2 days ago and she was recommended to have surgery and be transferred but there was no bed available at [place] and they recommended [place] but she felt that was too far. Patient has been on Bactrim since yesterday. She had culture at [facility] 2 days ago and was told it grew staph. She denies fever at home. She states her feet are numb and she had recent arterial vascular studies including blood pressure check on her legs and showed that her blood flow to the leg was good. She states her only medicine is metoprolol. She denies history of heart attack or stroke. She does not have diabetes. Review of Systems 2 Narrative: General no fevers chills Cardiovascular no chest pain or palpitations. She denies dyspnea on exertion with stairs or hills. Respiratory no shortness breath cough wheezing GI no nausea vomiting diarrhea no dysuria hematuria Neuro no history of seizures or strokes Psychiatric she has never been hospitalized for psychiatric illness Medications/Allergies Home Medications ?Medication ?Instructions ?Recorded ?Confirmed ?Last Taken ?Type metoprolol succinate 100 mg 100 mg PO QAM 07/16/2507/0207/16/25 08:00 History tablet,extended release 24 hr naproxen sodium 220 mg tablet 440 mg PO BID PRN Pain 0 07/16/25 07/16/25 07/16/25 09:00 History (Aleve) sulfamethoxazole 800 1 tab PO Q12H 07/16/2507/1607/16/25 09:00 History mg-trimethoprim 160 mg tablet (Bactrim DS) Allergies Allergy/AdvReac Type Severity Reaction Status Date / Time nicardipine (From Cardene) Allergy Unknown Verified 07/16/25 13:08 vancomycin Allergy Unknown Verified 07/16/25 13:08 PFSH Acute 2 PFSH: Medical History (Updated 07/16/25 @ 20:42 by Wilbert Maldonado MD) Hypertension Cellulitis and abscess of right lower extremity Social History (Updated 07/16/25 @ 20:40 by Wilbert Maldonado MD) Smoking and tobacco/nicotine status: current every day tobacco/nicotine user cigarettes Packs smoked per day: 1 Alcohol intake: current Alcohol intake frequency: few times a week Alcohol type: beer Substance/Drug Use: current Substance/Drug use type: Marijuana Other substance/drug use details: 1 hit a day Additional social history: Patient wants full CODE STATUS as discussed with Wilbert Maldonado MD on 07/16/2025 Lives independently: Yes Vitals/I&O/Wt Last Vital Signs Temp 97.7 F 07/16/25 15:07 Pulse 71 07/16/25 17:07 Resp 16 07/16/25 17:07 BP 114/63 07/16/25 17:07 Pulse Ox 96 07/16/25 17:07 O2 Del Method Room Air 07/16/25 17:07 07/16/25 07/16/25 07/16/25 06:59 14:59 22:59 Intake Total 0 / 0 Balance 0 / 0 Weight last 48 hrs Weight 62.142 kg Physical Exam 2 Narrative: General well-developed well-nourished female in no acute cardiopulmonary stress CV regular rate and rhythm Lungs clear to auscultation bilaterally Abdomen positive bowel tones soft nontender Calves there is no ankle edema or dorsal pedal edema. The right dorsal pedal pulses 2+ the left is 1+ to 2 both feet are warm. The right pretibial and anterolateral lower leg is inflamed and fluctuant with a pale erythema and yellowish discharge consistent with staph infection the affected area is 3-1/2 x 4-1/2 inches estimated Data 07/16/25 14:20 07/16/25 14:20 Micro: Microbiology 07/16/25 14:52 Blood Culture - Preliminary Blood SPECIMEN COLLECTED 07/16/25 14:20 Blood Culture - Preliminary Blood SPECIMEN COLLECTED A&P Assessment and plan 1. Cellulitis and abscess of right lower extremity: This is most consistent with MRSA and culture grew staph. She will be covered with linezolid as she had red man syndrome with vancomycin previously. She is started on IV linezolid. Repeat CBC in the morning. If not improving will add clindamycin 2. Traumatic hematoma of right lower leg with infection, initial encounter: As above 3. Hypertension: Resume metoprolol PDMP PDMP Reviewed: Not Reviewed Attestations 2 Medical Necessity Statement*: Patient is admitted the hospital for IV antibiotics and incisional drainage in the OR by Dr. Fine and will require greater than 2 midnights Coding Level of Care Code 46101 Diagnoses Cellulitis and abscess of right lower extremity L03.115; L02.415 Traumatic hematoma of right lower leg with infection, initial encounter S80.11XA; L08.9 Encounter type: initial encounter Laterality: right Hypertension I10 Time Spent (min) 55
[2025-07-16 21:16] VITALS: BP 109/61; PULSE 73; RESP 16; O2SAT 98
[2025-07-16 21:38] VITALS: BP 113/61; PULSE 58; RESP 16; TEMP 36.8; O2SAT 98
[2025-07-16 21:39] VITALS: BMI 23.4
[2025-07-16] MEDS: sodium chlor 0.9% + KCl 20 mEq 20 MEQ/1,000 ML BAG 100 MEQ IV (22:00)
[2025-07-16] MEDS: heparin 5,000 unit/mL INJ 1 mL 5000 UNIT SUBCUT (22:00)
[2025-07-17] VITALS (19 sets, daily range): BP systolic 92–129; BP diastolic 53–72; PULSE 57–97; RESP 15–19; TEMP 36.2–37.1; O2SAT 92–99
[2025-07-17] MEDS: metoprolol succinate ER (24 HR) 100 mg Tablet PO (05:41)
--- NOTE | 2025-07-17 06:50 | P.ANESASSM_ITS ---
Pre-Anesthetic Assessment Height/Weight: Height 5 ft 4 in Weight 136 lb 3.2 oz Temp Pulse Resp BP Pulse Ox O2 Del Method 97.9 F 63 18 128/54 95 Room Air 07/17/25 06:25 07/17/25 06:25 07/17/25 06:25 07/17/25 06:25 07/17/25 06:25 07/17/25 06:25 Preop Diagnosis: Lower extremity cellulitis Operation Date: 07/17/25 07:10 Proposed Procedures p Incision And Drainage Right leg abscess with wash out and packing(Right) - Odell Fine DO Was Beta Zoë taken within 24 hours: N/A Was Clonidine taken within 24 hours: N/A Last intake: Intake Last Liquid Date 07/16/25 Last Liquid Time 23:15 Last Solid Date 07/16/25 Last Solid Time 20:00 Social Tobacco and No alcohol Exam alert, oriented x 3, clear to auscultation bilaterally and regular rate & rhythm Airway Submandibular: within normal limits Cervical ROM: within normal limits Mallampati: Class II Dentition: full Anesthetic Plan ASA status: 3 Anesthesia: General Other: No prior issues with anesthesia N.p.o. since yesterday evening History of hypertension on metoprolol Current smoker, nicotine and marijuana Labs reviewed from today, WBC 11.9, NA 135, K+ 4.0 METs greater than 4 Plan for general anesthesia with LMA Medications/Allergies Home Medications ?Medication ?Instructions ?Recorded ?Confirmed ?Last Taken ?Type metoprolol succinate 100 mg 100 mg PO QAM 07/16/2507/0207/16/25 08:00 History tablet,extended release 24 hr naproxen sodium 220 mg tablet 440 mg PO BID PRN Pain 0 07/16/25 07/16/25 07/16/25 09:00 History (Aleve) sulfamethoxazole 800 1 tab PO Q12H 07/16/2507/1607/16/25 09:00 History mg-trimethoprim 160 mg tablet (Bactrim DS) Allergies Allergy/AdvReac Type Severity Reaction Status Date / Time nicardipine (From Cardene) Allergy Unknown Verified 07/16/25 13:08 vancomycin Allergy Unknown Verified 07/16/25 13:08 Current Medications Generic Name Dose Route Start Last Admin Trade Name Freq PRN Reason Stop Dose Admin Heparin Sodium (Porcine) 5,000 unit 07/16/25 21:38 07/16/25 22:00 Heparin 5,000 Unit/Ml Inj 1 Ml SUBCUT 5,000 unit On Hold: 07/17/25 06:07 Q12H RICKY Administration Comment: Order held by Process Transfer Potassium Chloride/Sodium Chloride 20 meq in 1,000 mls @ 100 mls/hr 07/16/25 21:38 07/17/25 05:50 Sodium Chlor 0.9% + Kcl 20 Meq IV 0 mls/hr On Hold: 07/17/25 06:07 .Q10H RICKY Infusion Comment: Order held by Process Transfer Sodium Chloride 1,000 mls @ 30 mls/hr 07/17/25 06:15 07/17/25 06:20 Sodium Chloride 0.9% IV 30 mls/hr .Q24H RICKY Administration Metoprolol Succinate 100 mg 07/17/25 06:00 07/17/25 05:41 Metoprolol Succinate Er (24 Hr) 100 Mg Tablet PO 100 mg On Hold: 07/17/25 06:07 QAM RICKY Administration Comment: Order held by Process Transfer [facility] Anesthesia Medical History (Updated 07/16/25 @ 20:42 by Wilbert Maldonado MD) Hypertension Cellulitis and abscess of right lower extremity Social History (Updated 07/16/25 @ 20:40 by Wilbert Maldonado MD) Smoking and tobacco/nicotine status: current every day tobacco/nicotine user cigarettes Packs smoked per day: 1 Alcohol intake: current Alcohol intake frequency: few times a week Alcohol type: beer Substance/Drug Use: current Substance/Drug use type: Marijuana Other substance/drug use details: 1 hit a day Additional social history: Patient wants full CODE STATUS as discussed with Wilbert Maldonado MD on 07/16/2025 Lives independently: Yes Data Anesthesia 07/16/25 14:20 07/16/25 14:20 Short CBC 07/16/25 Range/Units 14:20 WBC 11.93 H (3.29-11.43) 10^3/uL Hgb 12.60 (11.27-16.99) g/dL Hct 37.2 (36-47) % MCV 91.9 (85-98) fl Plt Count 389 (157-399) 10^3/cmm Neut % (Auto) 74.4 % Neut # (Auto) 8.88 H (1.8-7.7) 10^3/uL BMP 07/16/25 14:20 Sodium 135 L Potassium 4.0 Chloride 100 Carbon Dioxide 24 BUN 13 Creatinine 0.9 Glucose 76 Calcium 9.8 Liver Function 07/16/25 Range/Units 14:20 Total Bilirubin 0.4 (0.15-1.2) mg/dL AST 10 (0-32) U/L ALT 7 (0-33) U/L Alkaline Phosphatase 114 H (35-105) U/L Albumin 4.1 (3.5-5.2) g/dL Coags 07/16/25 14:20 C-Reactive Protein 285.2 H Microbiology 07/16/25 14:52 Blood Culture - Preliminary Blood SPECIMEN COLLECTED 07/16/25 14:20 Blood Culture - Preliminary Blood SPECIMEN COLLECTED
[2025-07-17] MEDS: ceFAZolin 2,000 mg SDV 2000 MG IVP (07:16)
--- NOTE | 2025-07-17 07:54 | W.PM.BPONFUL ---
Preop Diagnosis: RIght lower extremity infected hematoma Postop dx- same Procedure- Incision and drainage of right vela infected hematoma Findings: Infected hematoma- 8x10 cm Blood loss - 10 mls Anesthesia: General anesthesia Complications: [None] Brief history/preop diagnosis: Pt is a 65 y/o female with CC of right leg swelling and abscess with MRSA after a fall 3 weeeks ago. Full operative report: [Patient was brought back to the operating room placed on the operating table in supine position with the right leg propped up. The right leg was prepped and draped in usual sterile fashion. Timeout was completed verifying correct patient procedure site positioning and accompanying her prior to beginning procedure. Using a 10 blade scalpel approximately 6 to 7 cm incision was made in the area of the right anterior lateral vela and this was carried down to the subcutaneous tissue where a large 8 x 10 cm infected hematoma was identified. Using blunt dissection this area was broken up and all the contents were evacuated and both aerobic and anaerobic cultures were taken and sent to the lab for further evaluation. Once this was completed the hematoma was cleaned out and the cavity was irrigated using sterile saline. A small amount of purulent material was expressed but mainly well-formed collagenous material and clot were evacuated. The skin was evaluated and found to be viable surrounding the previous hematoma at this point the area was cleaned and no further debridement or evacuation was noted or necessary. The area was then packed with half-inch iodoform packing to fill the cavity and area was dressed and wrapped in a sterile fashion and she was taken to the postanesthesia care in stable condition and she tolerated the procedure well.] Condition: [] Dispostion: []
[2025-07-17] MEDS: fentaNYL 50 mcg/mL INJ 2mL IVP (07:59)
--- NOTE | 2025-07-17 08:19 | ANE.PACU2 ---
Inpatient post-anesthesia follow up: Airway intact: Yes Vital signs: Temperature 97.5 F Pulse Rate 68 Respiratory Rate 19 Blood Pressure 111/54 Pulse Oximetry 97 Oxygen Delivery Me thod Room Air Oxygen Flow Rate Fraction of Inspir ed Oxygen Hydration adequate: Yes Nausea and vomiting: No Pain level: 1 Mental status: Baseline
--- NOTE | 2025-07-17 15:00 | P.PN_ITS ---
Subjective 2 Subjective: 65-year-old female status post I&D right anterolateral lower leg infected hematoma. Blood cultures negative from yesterday wound culture is in the lab Patient states she feels much better and is not nauseated or dizzy he so she is currently in Trendelenburg or for low blood pressure postoperative this morning Vitals/I&O/Wt Last Vital Signs Temp 98.0 F 07/17/25 11:30 Pulse 57 L 07/17/25 11:30 Resp 19 H 07/17/25 11:30 BP 101/62 07/17/25 11:30 Pulse Ox 98 07/17/25 11:30 O2 Del Method Room Air 07/17/25 11:30 07/17/25 07/17/25 07/17/25 06:59 14:59 22:59 Intake Total 783.333 / 1538.333 480 / 480 Output Total Balance 783.333 / 1538.333 478 / 478 Weight last 48 hrs Weight 61.779 kg Weight 61.961 kg Weight 62.142 kg Physical Exam 2 Narrative: General well-developed well-nourished female in no acute cardiopulmonary stress CV regular rate and rhythm Lungs clear to auscultation bilaterally Abdomen positive bowel tones soft nontender Calves there is no ankle edema or dorsal pedal edema. Right anterolateral lower leg dressing in place. Surrounding edema has decreased minimally tender Data 07/16/25 14:20 07/16/25 14:20 Micro: Microbiology 07/16/25 14:52 Blood Culture - Preliminary Blood NEGATIVE TO DATE 07/16/25 14:20 Blood Culture - Preliminary Blood NEGATIVE TO DATE 07/17/25 07:40 Gram Stain - Final Leg - #1 A&P Assessment and plan 1. Cellulitis and abscess of right lower extremity: This is most consistent with MRSA and culture grew staph. She will be covered with linezolid as she had red man syndrome with vancomycin previously. She is started on IV linezolid. Repeat CBC in the morning. If not improving will add clindamycin 2. Traumatic hematoma of right lower leg with infection, initial encounter: As above 3. Hypertension: Currently hypotensive will give 1 L NS bolus PDMP PDMP Reviewed: Not Reviewed Attestations 2 Medical Necessity Statement*: Patient nunu in hospital 1 more anticipated midnight for IV antibiotics Coding Level of Care Code 76084 Diagnoses Cellulitis and abscess of right lower extremity L03.115; L02.415 Traumatic hematoma of right lower leg with infection, initial encounter S80.11XA; L08.9 Encounter type: initial encounter Laterality: right Hypertension I10 Time Spent (min) 25
[2025-07-18 04:23] VITALS: BP 120/73; PULSE 79; RESP 16; TEMP 36.7; O2SAT 92
[2025-07-18 04:47] LABS: Hematocrit 32.0 % (36-47); Hemoglobin 10.30 g/dL (11.27-16.99); Mean Corpuscular HGB Conc 32.2 g/dL (30-55); Mean Corpuscular Hemoglobin 30.7 pg (27-33); Mean Corpuscular Volume 95.2 fl (85-98); Nucleated Red Blood Cells % 0 %; Platelet Count 397 10^3/cmm (157-399); Red Blood Count 3.36 10^6/uL (3.85-5.65); White Blood Count 9.95 10^3/uL (3.29-11.43)
[2025-07-18 05:19] LABS: Anion Gap 14.3 (5-19); Blood Urea Nitrogen 21 mg/dL (8-23); Calcium 9.0 mg/dL (8.5-10.5); Carbon Dioxide 19 mmol/L (22-29); Chloride 110 mmol/L (98-107); Creatinine Clr Calc Pharmacy 64.4375; Glucose 118 mg/dL (65-115); Osmolality Calculated 292 mOsm/kg (285-295); Potassium 4.3 mmol/L (3.5-5.1); Sodium 139 mmol/L (136-145)
[2025-07-18 07:36] VITALS: BP 119/71; PULSE 65; RESP 18; TEMP 36.5; O2SAT 98
--- NOTE | 2025-07-18 10:31 | P.PN_ITS ---
Subjective 2 Subjective: 65-year-old female status post I&D right anterolateral lower leg infected hematoma. Blood cultures negative from admission and wound culture still in the lab but microscopic was unremarkable for bacteria. Patient states her right lower leg is more swollen than it ever has been but she did not have it up until this morning Vitals/I&O/Wt Last Vital Signs Temp 97.7 F 07/18/25 07:36 Pulse 65 07/18/25 07:36 Resp 18 07/18/25 07:36 BP 119/71 07/18/25 07:36 Pulse Ox 98 07/18/25 07:36 O2 Del Method Room Air 07/18/25 07:36 07/17/25 07/18/25 07/18/25 22:59 06:59 14:59 Intake Total 1480 / 1960 360 / 360 Output Total 350 / 352 150 / 502 Balance 1130 / 1608 -150 / 1458 360 / 360 Weight last 48 hrs Weight 63.503 kg Weight 61.779 kg Weight 61.961 kg Weight 62.142 kg Physical Exam 2 Narrative: General well-developed well-nourished female in no acute cardiopulmonary stress CV regular rate and rhythm Lungs clear to auscultation bilaterally Abdomen positive bowel tones soft nontender Calves there is 1+ ankle edema. Right anterolateral lower leg dressing in place. Data 07/18/25 04:35 07/18/25 04:35 Micro: Microbiology 07/16/25 14:52 Blood Culture - Preliminary Blood NEGATIVE TO DATE 07/16/25 14:20 Blood Culture - Preliminary Blood NEGATIVE TO DATE 07/17/25 07:40 Gram Stain - Final Leg - #1 A&P Assessment and plan 1. Cellulitis and abscess of right lower extremity: This is most consistent with MRSA and culture grew staph. Linezolid and Zosyn failed to be ordered for yesterday am going to start her on clindamycin 900 mg IV Q8 and also Bactrim DS 1 p.o. twice daily. Anticipate discharge tomorrow on oral clinda and unless culture shows something to require 2. Traumatic hematoma of right lower leg with infection, initial encounter: As above 3. Hypertension: Blood pressure normalized after hypotension yesterday 4. Tobacco dependence due to cigarettes: Patient requested nicotine patch. She is reluctant to actually quit at home but I did area counselor her regarding vasoconstriction from nicotine and vascular disease as well as poor wound healing and she is considering PDMP PDMP Reviewed: Not Reviewed Attestations 2 Medical Necessity Statement*: Patient remained in the hospital for pulmonary culture results as well as 1 more day of IV antibiotics. She needs dressing change and evaluation by her surgeon as well as arrangement for outpatient wound care Coding Level of Care Code 78290 Diagnoses Cellulitis and abscess of right lower extremity L03.115; L02.415 Traumatic hematoma of right lower leg with infection, initial encounter S80.11XA; L08.9 Encounter type: initial encounter Laterality: right Hypertension I10 Tobacco dependence due to cigarettes F17.210 Time Spent (min) 35
[2025-07-18] MEDS: sulfamethoxazole-trimeth DS 160-800 mg Tablet 1 TAB PO ×2 (10:50→17:25)
[2025-07-18 11:40] VITALS: BP 153/72; PULSE 54; RESP 21; TEMP 36.8; O2SAT 94
--- NOTE | 2025-07-18 14:25 | PM.PN ---
Subjective Subjective: Patient seen and examined. Doing well this morning. She had some increased swelling in her leg overnight so she has been elevating it and looks much better today. Pain is well-controlled. Tolerating general diet. No acute events overnight. Vitals/I&O/Wt Last Vital Signs Temp 98.2 F 07/18/25 11:40 Pulse 54 L 07/18/25 11:40 Resp 21 H 07/18/25 11:40 BP 153/72 07/18/25 11:40 Pulse Ox 94 07/18/25 11:40 O2 Del Method Room Air 07/18/25 11:40 07/17/25 07/18/25 07/18/25 22:59 06:59 14:59 Intake Total 1480 / 1960 650 / 650 Output Total 350 / 352 150 / 502 Balance 1130 / 1608 -150 / 1458 650 / 650 Weight last 48 hrs Weight 140 lb Weight 136 lb 3.2 oz Weight 136 lb 9.6 oz Physical Exam Narrative: General well-developed well-nourished female in no acute cardiopulmonary stress CV regular rate and rhythm Lungs clear to auscultation bilaterally Abdomen positive bowel tones soft nontender Calves there is 1+ ankle edema. Right anterolateral lower leg dressing in place. Data 07/18/25 04:35 07/18/25 04:35 Micro: Microbiology 07/17/25 07:40 Gram Stain - Final Leg - #1 Wound Culture - Preliminary 07/16/25 14:52 Blood Culture - Preliminary Blood NEGATIVE TO DATE 07/16/25 14:20 Blood Culture - Preliminary Blood NEGATIVE TO DATE A&P Assessment and plan 1. Cellulitis and abscess of right lower extremity: Postop day 1 from incision and drainage of infected hematoma in OR. Packing changed at bedside today. No purulent drainage noted. Change packing every 1 to 2 days at home. Consult home health care and social work to set up home health care for at home packing changes. Continue IV antibiotics until culture results finalized. Okay for discharge whenever okay with hospitalist team. 2. Traumatic hematoma of right lower leg with infection, initial encounter: As above 3. Hypertension: Blood pressure normalized after hypotension yesterday 4. Tobacco dependence due to cigarettes: Patient requested nicotine patch. She is reluctant to actually quit at home but I did marriage and family counselor her regarding vasoconstriction from nicotine and vascular disease as well as poor wound healing and she is considering PDMP PDMP Reviewed: Not Reviewed Attestations Medical Necessity Statement*: Remains in hospital for finalization of blood cultures Coding Level of Care Code Acute Code for Chg Fwd Diagnoses Cellulitis and abscess of right lower extremity L03.115; L02.415 Traumatic hematoma of right lower leg with infection, initial encounter S80.11XA; L08.9 Encounter type: initial encounter Laterality: right Hypertension I10 Tobacco dependence due to cigarettes F17.210
[2025-07-18] MEDS: HYDROcodone-acetaminophen 5-325 mg Tablet 1 TAB PO (14:54)
[2025-07-18] MEDS: metoprolol succinate ER (24 HR) 100 mg Tablet PO (15:19)
[2025-07-18 15:30] VITALS: BP 157/79; PULSE 59; RESP 18; TEMP 36.8; O2SAT 97
[2025-07-18 20:12] VITALS: BP 163/74; PULSE 55; RESP 17; TEMP 36.7; O2SAT 98
[2025-07-19 00:53] VITALS: BP 155/70; PULSE 63; RESP 18; TEMP 36.8; O2SAT 97
[2025-07-19 04:09] VITALS: BP 157/78; PULSE 54; RESP 17; TEMP 36.7; O2SAT 92
[2025-07-19 07:33] VITALS: BP 149/77; PULSE 56; RESP 17; TEMP 36.9; O2SAT 97
--- NOTE | 2025-07-19 08:51 | PM.PN ---
Subjective Subjective: Patient seen and examined. Overall doing much better this morning with no complaints. Pain is well-controlled. Swelling in her right foot has improved. Denies any shortness of breath and denies any other symptoms. Tolerating her diet. Ambulating in the halls. No acute events overnight. Vitals/I&O/Wt Last Vital Signs Temp 98.4 F 07/19/25 07:33 Pulse 56 L 07/19/25 07:33 Resp 17 07/19/25 07:33 BP 149/77 07/19/25 07:33 Pulse Ox 97 07/19/25 07:33 O2 Del Method Room Air 07/19/25 07:33 07/18/25 07/19/25 07/19/25 22:59 06:59 14:59 Intake Total 240 / 890 1000 / 1890 Balance 240 / 890 1000 / 1890 Weight last 48 hrs Weight 186 lb Weight 140 lb Physical Exam Narrative: General well-developed well-nourished female in no acute cardiopulmonary stress CV regular rate and rhythm Lungs clear to auscultation bilaterally Abdomen positive bowel tones soft nontender Calves there is 1+ ankle edema. Right anterolateral lower leg dressing in place. Data 07/18/25 04:35 07/18/25 04:35 Micro: Microbiology 07/17/25 07:40 Gram Stain - Final Leg - #1 Wound Culture - Preliminary A&P Assessment and plan 1. Cellulitis and abscess of right lower extremity: Postop day 2 from incision and drainage of infected hematoma in OR. Packing changed at bedside today. No purulent drainage noted. Nursing to change packing at bedside today. Change packing every 1 to 2 days at home. Consult home health care and social work to set up home health care for at home packing changes. Continue IV antibiotics until culture results finalized. Okay for discharge whenever okay with hospitalist team. 2. Traumatic hematoma of right lower leg with infection, initial encounter: As above 3. Hypertension: Blood pressure normalized after hypotension yesterday 4. Tobacco dependence due to cigarettes: Patient requested nicotine patch. She is reluctant to actually quit at home but I did counseling center director her regarding vasoconstriction from nicotine and vascular disease as well as poor wound healing and she is considering PDMP PDMP Reviewed: Not Reviewed Attestations Medical Necessity Statement*: Likely discharge home today or tomorrow Coding Level of Care Code Acute Code for Chg Fwd Diagnoses Cellulitis and abscess of right lower extremity L03.115; L02.415 Traumatic hematoma of right lower leg with infection, initial encounter S80.11XA; L08.9 Encounter type: initial encounter Laterality: right Hypertension I10 Tobacco dependence due to cigarettes F17.210
[2025-07-19] MEDS: sulfamethoxazole-trimeth DS 160-800 mg Tablet 1 TAB PO (09:15)
[2025-07-19] MEDS: metoprolol succinate ER (24 HR) 100 mg Tablet PO (09:15)
[2025-07-19] MEDS: ondansetron 2 mg/ML SDV 2 mL 4 MG IVP (09:33)
[2025-07-19] MEDS: HYDROcodone-acetaminophen 5-325 mg Tablet 1 TAB PO (09:33)
[2025-07-19 11:47] VITALS: BP 171/69; PULSE 50; RESP 17; TEMP 36.8; O2SAT 98
--- NOTE | 2025-07-19 12:08 | P.DS_ITS ---
Discharge Providers 2 Date of Admission: 07/16/25 16:58 Date of Discharge: July 19, 2025 Attending Provider at Admission: Wilbert Maldonado MD Attending Provider at Discharge: Wilbert Maldonado MD Consults: Odell Fine DO General Surgery Diagnoses at Discharge Discharge Diagnosis 1. Cellulitis and abscess of right lower extremity: Details from hospital stay: Incision and drainage was performed on 07/17/2025. Wound culture negative. Continue with Bactrim DS for another 10 days 2. Traumatic hematoma of right lower leg with infection, initial encounter: Details from hospital stay: Dressing changes at home by home health and by patient's daughter who is a childcare aide 3. Hypertension: Details from hospital stay: Decrease Toprol to 50 mg daily start losartan 25 mg daily 4. Tobacco dependence due to cigarettes: Details from hospital stay: Stop smoking utilizing tapering nicotine patches as discussed. Reason for Visit 2 Reason for Visit: staph infection rleg surg consult Brief History: Trinidad Gibbs is a 65 year old female comes in with infected tibial hematoma. 3 weeks ago she exited a friend's trailer and there was a missing board causing a gap between the trailer and the patio. Her foot fell into the space and she scraped her tibia down the board. This caused a scrape that her daughter did clean up but then she was wearing jeans that stuck to the scab that ripped off and it became infected. She went to [place] 2 days ago and she was recommended to have surgery and be transferred but there was no bed available at [facility] and they recommended [facility] but she felt that was too far. Patient has been on Bactrim since yesterday. She had culture at [facility] 2 days ago and was told it grew staph. She denies fever at home. She states her feet are numb and she had recent arterial vascular studies including blood pressure check on her legs and showed that her blood flow to the leg was good. She states her only medicine is metoprolol. She denies history of heart attack or stroke. She does not have diabetes. Hospital Course Hospital Course Patient was admitted and started on clindamycin IV. She underwent surgical debridement on 07/17/2020 5 in the morning. This showed infected hematoma 8 x 10 cm but blood cultures and wound cultures thus far negative. Patient had slow resolution of swelling in the right leg. Erythema has resolved Patient was counseled regarding smoking cessation and wishes to continue with the nicotine patch taper and stop smoking. We discussed that it will improve wound healing to stop smoking and ultimately decrease risk of cardiovascular disease later in her life Initially hypotensive we have resumed her metoprolol but noted bradycardia so I decreased her metoprolol from 100 mg daily to 50 mg XL daily. Add losartan 25 mg daily Physical Exam 2 Narrative: General well-developed well-nourished female in no acute cardiopulmonary stress CV regular rate and rhythm no loud murmur Lungs clear to auscultation bilaterally Abdomen soft nontender Calves right ankle edema 1+ to 2 but nontender Right anterolateral lower leg hematoma incision site dressed and dressing is not soiled. See the images Discharge Data Studies Completed and Pending Completed Studies During Hospitalization Category Date Time Status CT lower leg RT w con [id number] Stat Cat Scan 07/16/25 14:00 Completed Pending at discharge Category Date Time Status Anaerobic Culture Routine Lab 07/17/25 07:40 Results Blood Culture Stat Lab 07/16/25 14:52 Results Wound Culture and Gram Stain Routine Lab 07/17/25 07:40 Results Radiology Impressions Lower Extremity CT 07/16/25 14:00 IMPRESSION: Similar size of a complex rim enhancing subcutaneous fluid collection in the anterior aspect of the upper leg, with a collection located superficial to the intramuscular compartment. This could represent an abscess in the appropriate clinical setting versus less likely evolving hematoma. Consider percutaneous sampling/drainage. No acute bony abnormality or specific CT findings to suggest osteomyelitis. Laboratory Results WBC 9.95 10^3/uL (3.29-11.43) 07/18/25 04:35 RBC 3.36 10^6/uL (3.85-5.65) L 07/18/25 04:35 Hgb 10.30 g/dL (11.27-16.99) L 07/18/25 04:35 Hct 32.0 % (36-47) L 07/18/25 04:35 MCV 95.2 fl (85-98) 07/18/25 04:35 MCH 30.7 pg (27-33) 07/18/25 04:35 MCHC 32.2 g/dL (30-55) 07/18/25 04:35 RDW 12.3 % (12.1-15.1) 07/18/25 04:35 Plt Count 397 10^3/cmm (157-399) 07/18/25 04:35 MPV 9.5 fL (7.4-10.4) 07/18/25 04:35 Neut % (Auto) 74.2 % 07/18/25 04:35 Lymph % (Auto) 16.2 % 07/18/25 04:35 Lander % (Auto) 8.7 % 07/18/25 04:35 Eos % (Auto) 0.2 % 07/18/25 04:35 Baso % (Auto) 0.1 % 07/18/25 04:35 Neut # (Auto) 7.38 10^3/uL (1.8-7.7) 07/18/25 04:35 Lymph # (Auto) 1.6 10^3/uL (0.8-4.8) 07/18/25 04:35 Lander # (Auto) 0.9 10^3/uL (0.2-0.9) 07/18/25 04:35 Eos # (Auto) 0.0 10^3/uL (0.0-0.8) 07/18/25 04:35 Baso # (Auto) 0.0 10^3/uL (0.0-0.1) 07/18/25 04:35 Nucleated RBC % (auto) 0 % 07/18/25 04:35 Nucleated RBCs # 0.0 /100WBC 07/18/25 04:35 Sodium 139 mmol/L (136-145) 07/18/25 04:35 Potassium 4.3 mmol/L (3.5-5.1) 07/18/25 04:35 Chloride 110 mmol/L (98-107) H 07/18/25 04:35 Carbon Dioxide 19 mmol/L (22-29) L 07/18/25 04:35 Anion Gap 14.3 (5-19) 07/18/25 04:35 BUN 21 mg/dL (8-23) 07/18/25 04:35 Creatinine 0.8 mg/dL (0.5-0.9) 07/18/25 04:35 GFR Calculation 72.0 mL/min (90-130) L 07/18/25 04:35 Glucose 118 mg/dL (65-115) H 07/18/25 04:35 Calculated Osmolality 292 mOsm/kg (285-295) 07/18/25 04:35 Lactic Acid 1.0 mmol/L (0.5-2.2) 07/16/25 14:20 Calcium 9.0 mg/dL (8.5-10.5) 07/18/25 04:35 Total Bilirubin 0.4 mg/dL (0.15-1.2) 07/16/25 14:20 AST 10 U/L (0-32) 07/16/25 14:20 ALT 7 U/L (0-33) 07/16/25 14:20 Alkaline Phosphatase 114 U/L (35-105) H 07/16/25 14:20 C-Reactive Protein 285.2 mg/L (0.0-4.9) H 07/16/25 14:20 Total Protein 7.9 g/dL (6.6-8.7) 07/16/25 14:20 Albumin 4.1 g/dL (3.5-5.2) 07/16/25 14:20 Globulin 3.8 g/dL (1.3-4.6) 07/16/25 14:20 Vitals Last Vital Signs Temp 98.2 F 07/19/25 11:47 Pulse 50 L 07/19/25 11:47 Resp 17 07/19/25 11:47 BP 171/69 07/19/25 11:47 Pulse Ox 98 07/19/25 11:47 O2 Del Method Room Air 07/19/25 11:47 Discharge Plan Discharge Patient Disposition: Home Condition: Stable Prescriptions: New losartan 25 mg tablet 25 mg PO DAILY Qty: 30 0RF nicotine 21 mg/24 hr Patch 24 Hour 1 patch transdermal DAILY Qty: 14 0RF nicotine 14 mg/24 hr patch 24 hour 1 patch transdermal DAILY Qty: 14 0RF nicotine 7 mg/24 hr patch 24 hour 1 patch transdermal DAILY Qty: 14 0RF acetaminophen 325 mg Tablet 650 mg PO Q6H PRN (Reason: Mild/Mod Pain Or Temp >/= 101) Qty: 30 0RF Continued naproxen sodium [Aleve] 220 mg Tablet 440 mg PO BID PRN (Reason: Pain) sulfamethoxazole-trimethoprim [Bactrim DS] 800-160 mg Tablet 1 tab PO Q12H Qty: 10 0RF Changed metoprolol succinate 100 mg tablet extended release 24 hr 50 mg PO QAM Qty: 30 0RF Discharge Order = DC NOW: Discharge Order (Routine); Ordered 07/19/25 Ordered By: Wilbert Maldonado Referrals: Thong Mann MD [Physician, General Surgery] - 08/02/25 10:20 am Discharge Diet: Cardiac and Low Salt Discharge Activity: Increase activity as tolerated Patient Instructions: Acute Wound Care (DC), Opioid Safety, Post Anesthesia Care, Patient Portal & Jazmin Instructions Activity Restrictions/Additional Instructions: dressing changes daily with home health or by your daughter with home health or by her daughter return for fever worsening pain or discharge from your wound please stop smoking utilizing the nicotine patches as we have discussed take Bactrim DS 1 p.o. twice a day for 10 days Home health wound care Discharge Attestations 2 Time Spent in Discharge Care*: greater than 30 min Time Spent in Smoking Cessation: 10 Quality Metrics Clinical Quality Measures [ No reported AMI, CVA or VTE this stay] Coding Level of Care Code 16309 Diagnoses Cellulitis and abscess of right lower extremity L03.115; L02.415 Traumatic hematoma of right lower leg with infection, initial encounter S80.11XA; L08.9 Encounter type: initial encounter Laterality: right Hypertension I10 Tobacco dependence due to cigarettes F17.210 Time Spent (min) 35
--- NOTE | 2025-07-19 12:31 | PC.NURSE ---
Losartan prescription called into the correct [facility]
[2025-07-19 14:08] VITALS: BP 171/69; PULSE 50; RESP 17; TEMP 36.8; O2SAT 98
== END 2025-07-19 14:11 | disposition home health service (06) | DRG 605 ==
LOC: ER 15:52 → ER IP 16:58 → MEDSURG 21:15
PROVIDERS: Surgery; Admitting Provider Internal Medicine; Emergency Provider Family Medicine; Visit Provider Internal Medicine
PROC: 0J9N0ZX Drainage of Right Lower Leg Subcutaneous Tissue and Fascia, Open Approach, Diagnostic (ICD-10-PCS; principal; 2025-07-17 07:00)
DX: S80.11XA Contusion of right lower leg, initial encounter (principal); L02.415 Cutaneous abscess of right lower limb; L03.115 Cellulitis of right lower limb; B95.62 Methicillin resistant Staphylococcus aureus infection as the cause of diseases classified elsewhere; W17.89XA Other fall from one level to another, initial encounter; I10 Essential (primary) hypertension; F17.210 Nicotine dependence, cigarettes, uncomplicated; I95.9 Hypotension, unspecified
CPT/HCPCS: 36415; 73701; 80048; 80053; 83605; 85025; 86140; 87040; 87070; 87075; 87205; 96365; 96372; 99285; J0690; J1100; J1644; J1650; J1885; J2020; J2250; J2371; J2405; J2704; J3010; J3480; J3490; J7030; J9999

== ENCOUNTER → 2025-08-02 11:00 | Outpatient (BNVA) | payer MEDICARE, MEDICAID, SELFPAY | PROVIDERS: Visit Provider Student in an Organized Health Care Education/Training Program | DX: R03.0 Elevated blood-pressure reading, without diagnosis of hypertension (principal); L03.115 Cellulitis of right lower limb; L02.415 Cutaneous abscess of right lower limb; Z98.890 Other specified postprocedural states | CPT/HCPCS: 99203; 99213 ==

== ENCOUNTER 2025-08-14 09:36 | Emergency (ER) | payer MEDICARE, MEDICAID, SELFPAY ==
[2025-08-14 09:41] VITALS: BP 120/73; PULSE 66; TEMP 36.8; O2SAT 98
--- OUTSIDE RECORDS SUMMARY | 2025-08-14 09:46 | XMS_ITS | Clinical Summary ---
Author Organization [facility] [employer] [place] Address [address] [place] [address] Phone Care Team Providers Care Cisco Certified Network Associate Name Role Phone Abdoul Marques MD Primary Care Provider [phone] Allergies Active Allergy Reactions Criticality Noted Date Comments Codeine Nausea and Vomiting Low 07/14/2025 Vancomycin Rash,Itching Low 07/14/2025 Medications metoprolol succinate (TOPROL XL) 100 mg Extended Release 24 hour tabletIndications :Benign hypertension Take 1 Tablet (100 mg) by mouth daily with breakfast. 90 Tablet 3 5 Active losartan (COZAAR) 25 mg tablet 5 Active sulfamethoxazole- trimethoprim (BACTRIM DS) 800-160 mg tabletIndications :Hematoma Take 1 Tablet by mouth 2 times daily for 7 days. 14 Tablet 5 08/17/20 25 Active sulfamethoxazole- trimethoprim (BACTRIM DS) 800-160 mg tablet Take 1 Tablet by mouth 2 times daily for 7 days. 14 Tablet 5 07/21/20 25 sulfamethoxazole- trimethoprim (BACTRIM DS) 800-160 mg tablet Take 1 Tablet by mouth 2 times daily. 08/10/20 25 Discontinue d(Reorder) Active Problems No known active problems Encounters Date Type Department Care Team Description 08/10/[address] [address] Abdoul Marques MD Medication Review 07/25/2025 2:00 PM CDT Office Visit [address] [address] Blanche Ortega FNP Hematoma (Primary Dx); Encounter for postoperative wound check; Benign hypertension 07/20/2025 Telephone [facility] [address] [place] [phone] Janna Matthews FNP Home Health 07/20/[address] [place] [address] Abdoul Marques MD Provider Call 07/19/[address] [place] [phone] Abdoul Marques MD Information 07/17/2025 External Device Data [facility] ABSTRACTION Provider, Abstract 07/17/2025 External Device Data [facility] ABSTRACTION Provider, Abstract 07/17/2025 External Device Data [facility]STRACTION Provider, Abstract 07/16/2025 Results Follow-Up [facility] [address] [place] [address] Brunilda Yan, RAMON ANAEROBIC/AEROBIC CULTURE W GRAM STAIN, MRSA PCR RAPID SCREEN, BLOOD CULTURE, BLOOD CULTURE 07/14/2025 1:57 PM CDT - 07/14/2025 7:52 PM CDT Emergency [facility] [address] [place] [phone] Christopher Mathis, DO Hernandezan, Keven Y, DO Hematoma (Primary Dx) Discharge Disposition: Home or Self Care 07/14/2025 Travel 06/22/2025 Results Follow-Up [address] [place] [phone] Blanche Ortega FNP US ANKLE PRESSURE INDEX 06/21/2025 3:45 PM CDT - 06/21/2025 11:59 PM CDT Hospital Encounter [facility] [address] [place] [address] Janna Matthews, SERVICE TESTER Discharge Disposition: Home or Self Care 06/13/2025 External Device Data [facility] ABSTRACTION Provider, Abstract 06/12/2025 External Device Data [facility] ABSTRACTION Provider, Abstract 06/12/2025 External Device Data [facility] ABSTRACTION Provider, Abstract 06/05/2025 10:00 AM CDT Office Visit [address] [phone] Janna Matthews FNP Benign hypertension (Primary Dx); Numbness and tingling of both legs; Cigarette nicotine dependence without complication; Encounter for screening for lung cancer from Last 3 Months Social History Tobacco Use Types Packs/Day Years Used Date Smoking Tobacco: Every Day Cigarettes 1 50.8 Started: 1974 Passive Smoke Exposure: Current Smokeless [...] Sign Reading Time Taken Comments Blood Pressure 114/64 07/25/2025 1:33 PM CDT Pulse 55 07/25/2025 1:33 PM CDT Temperature 36.8 C (98.3 F) 07/25/2025 1:33 PM CDT Respiratory Rate 16 07/25/2025 1:33 PM CDT Oxygen Saturation 98% 07/25/2025 1:33 PM CDT Inhaled Oxygen Concentration - - Weight 61.4 kg (135 lb 6 oz) 07/25/2025 1:33 PM CDT Height 161.3 cm (5' 3.5 ) 07/25/2025 1:33 PM CDT Body Mass Index 23.6 07/25/2025 1:33 PM CDT Plan of Treatment Upcoming Encounters Date Type Department Care Team (Late st Contact Info) Description 08/24/2025 10:00 AM CDT Office Visit [facility] [address] [phone] Janna Matthews FNP [address] [phone] Health Maintenance Due Date Last Done Comments [...] GRAM STAIN Stat 07/14/2025 3:16 PM CDT BLOOD CULTURE Stat 07/14/2025 3:00 PM CDT BLOOD CULTURE Stat 07/14/2025 3:00 PM CDT MAGNESIUM LEVEL Stat 07/14/2025 2:55 PM CDT LACTIC ACID Stat 07/14/2025 2:55 PM CDT COMPREHENSIVE METABOLIC PANEL Stat 07/14/2025 2:55 PM CDT CBC WITH DIFFERENTIAL Stat 07/14/2025 2:55 PM CDT BLOOD CULTURE Stat 07/14/2025 2:55 PM CDT BLOOD CULTURE Stat 07/14/2025 2:55 PM CDT US ANKLE [...] further characterization. Ultimately aspiration may be needed. [facility] CT ORDERABLES Final Resul t * (ABNORMAL) MRSA PCR RAPID SCREEN (07/14/2025 3:55 PM CDT) Pathologist [facility] MRSA PCR RESULT MRSA detected( A) MRSA not detected 07/15/2025 6:06 PM CDT [facility] Surveillance ANTERIOR NARES SWAB / Unknown 07/14/2025 3:55 PM CDT 07/14/2025 3:58 PM CDT Narrative [facility] - 07/15/2025 6:06 PM CDT MRSA detected called to [facility] by ORIANA CARTAGENA on 07/15/2025 at 6:05 PM with verbal readback. This assay is used to detect Methicillin-Resistant S. aureus (MRSA) colonization of the nares. PLEASE NOTE: This test has not been approved to monitor effectiveness of MRSA decolonization. Residual DNA may temporarily be present after successful decolonization. This test was performed using an FDA approved screening methodology. [facility] MICROBIOLOGY - GENERAL ORDE RABLES Final Result [facility] CLIA # [id number] [address] [place] [address] * (ABNORMAL) ANAEROBIC/AEROBIC CULTURE W GRAM STAIN (07/14/2025 3:16 PM CDT) Pathologist [facility] CULTURE STREPTOCOCCUS DYSGALACTIAE SUBSP. EQUISIMILIS(A) RHODA MCG/ML 07/17/2025 7:44 AM CDT [facility] Comment: Beta Streptococcus groups A, B, C, and G are predictably susceptible to ampicillin, penicillin, and cefazolin, but may be resistant to erythromycin and/or clindamycin. Susceptibility not routinely performed CULTURE METHICILLIN RESISTANT STAPHYLOCOCCUS AUREUS(A) RHODA MCG/ML 07/17/2025 7:44 AM CDT [facility] GRAM STAIN 2+ (Few) Gram positive cocci 07/17/2025 7:44 AM CDT [facility] GRAM STAIN No Polymorphonuclear WBC 07/17/2025 7:44 AM CDT [facility] Lesion/Drainage Fluid (Leg, right) 07/14/2025 3:16 PM CDT 07/14/2025 3:20 PM CDT Narrative [facility] - 07/17/2025 7:44 AM CDT Specimen received on swabs. Tissue and fluid specimens are recommended for the optimal recovery of anaerobes. Organism Antibiotic Method Susceptibility Staphylococcus aureus, Methicillin resistant OXACILLIN (Nafcillin) RHODA MCG/ML >=4 mcg/mL: Resistant Staphylococcus aureus, Methicillin resistant VANCOMYCIN RHODA MCG/ML <=0.5 mcg/mL: Susceptible Staphylococcus aureus, Methicillin resistant ERYTHROMYCIN RHODA MCG/ML >=8 mcg/mL: Resistant Staphylococcus aureus, Methicillin resistant CLINDAMYCIN RHODA MCG/ML 0.25 mcg/mL: Susceptible Staphylococcus aureus, Methicillin resistant DOXYCYCLINE RHODA MCG/ML <=0.5 mcg/mL: Susceptible Staphylococcus aureus, Methicillin resistant TRIMETHOPRIM/ SULFAMETHOXAZOLE RHODA MCG/ML >=320 mcg/mL: Resistant Comment:If Inpatient, place patient in Contact Precautions - Gown and gloves for every entry into patient rooms. Brunilda Yan [facility] MICROBIOLOGY - GENERAL ORDE [facility] Final Result [facility] CLIA # [id number] [address] [address] [place] [address] * BLOOD CULTURE (07/14/2025 3:00 PM CDT) Only the most recent of2 resultswithin the time period is included. BLOOD CULTURE No growth 07/20/2025 5:37 PM CDT [facility] Blood (Peripheral) Venipuncture / Unknown 07/14/2025 3:00 PM CDT 07/14/2025 4:40 PM CDT Christopher Mathis DO MICROBIOLOGY - GENERAL ORDERABL ES Final Result [facility] CLIA # [id number] [address] [place] [id number] * LACTIC ACID (07/14/2025 2:55 PM CDT) LACTIC ACID 1.8 <=2.0 mmol/L 07/14/2025 3:[address] [facility] Blood BLOOD SPECIMEN / Unknown Venipuncture / Unknown 07/14/2025 2:55 PM CDT 07/14/2025 3:12 PM CDT Brunilda Yan SERVICE TESTER CHEMISTRY ORDERABLES Final Result Performing Organization Address City/[facility]/ZIP Co de Phone Number [facility] CLIA # [id number] [address] [place] [id number] * (ABNORMAL) CBC WITH DIFFERENTIAL (07/14/2025 2:55 PM CDT) WBC 13.3(H) 4.0 - 10.0 K/uL 07/14/2025 3:[address] [facility] RBC 4.69 3.93 - 5.22 M/uL 07/14/2025 3:[address] [facility] HEMOGLOBIN 14.6 11.2 - 15.7 g/dL 07/14/2025 3:[address] [facility] HEMATOCRIT 42.0 34.1 - 44.9 % 07/14/2025 3:16 PM [facility] MCV 89.6 79.4 - 94.8 fL 07/14/2025 3:16 PM [facility] MCH 31.1 25.6 - 32.2 pg 07/14/2025 3:16 PM [facility] MCHC 34.8 32.2 - 35.5 g/dL 07/14/2025 3:16 PM [facility] RDW 13.2 11.0 - 14.5 % 07/14/2025 3:16 PM [facility] RDW-STDEV 43.3 36.9 - 56.9 fL 07/14/2025 3:16 PM [facility] PLATELETS 452(H) 163 - 337 K/uL 07/14/2025 3:16 PM [facility] MPV 9.2(L) 10.0 - 14.8 fL 07/14/2025 3:16 PM [facility] NEUTROPHILS 75(H) 34 - 71 % 07/14/2025 3:16 PM [facility] LYMPHOCYTES 14(L) 19 - 52 % 07/14/2025 3:16 PM [facility] MONOCYTES 9 5 - 13 % 07/14/2025 3:16 PM [facility] EOSINOPHILS 1 1 - 6 % 07/14/2025 3:16 PM [facility] BASOPHILS 0 0 - 1 % 07/14/2025 3:16 PM [facility] IMMATURE GRANULOCYTES 0 % 07/14/2025 3:16 PM [facility] NEUTROPHIL ABSOLUTE 9.98(H) 1.56 - 6.13 K/uL 07/14/2025 3:16 PM [facility] LYMPHOCYTE ABSOLUTE 1.83 1.20 - 3.40 K/uL 07/14/2025 3:16 PM [facility] MONOCYTE ABSOLUTE 1.25(H) 0.24 - 0.36 K/uL 07/14/2025 3:16 PM [facility] EOSINOPHIL ABSOLUTE 0.12 0.04 - 0.36 K/uL 07/14/2025 3:[address] [facility] BASOPHILS ABSOLUTE 0.04 0.01 - 0.08 K/uL 07/14/2025 3:[address] [facility] IMMATURE GRANULOCYTES ABSOLUTE 0.05 K/uL 07/14/2025 3:[address] [facility] Blood Venipuncture / Unknown 07/14/2025 2:55 PM CDT 07/14/2025 3:12 PM CDT [facility] HEMATOLOGY ORDERABLES Final Result Performing Organization Address [facility]/ZIP Co de Phone Number [id number] [address] [place] [address] * MAGNESIUM LEVEL (07/14/2025 2:55 PM CDT) MAGNESIUM 1.7 1.6 - 2.4 mg/dL 07/14/2025 3:[address] [facility] Blood Venipuncture / Unknown 07/14/2025 2:55 PM CDT 07/14/2025 3:09 PM CDT Brunilda Holguin [facility] CHEMISTRY ORDERABLES Final Result Performing Organization Address [facility]/ZIP Co de Phone Number [facility] CLIA # [id number] [address] [place] [address] * (ABNORMAL) COMPREHENSIVE METABOLIC PANEL (07/14/2025 2:55 PM CDT) SODIUM 137 136 - 145 mmol/L 07/14/2025 3:[address] [facility] POTASSIUM 4.0 3.5 - 5.1 mmol/L 07/14/2025 3:[address] [facility] CHLORIDE 99 98 - 107 mmol/L 07/14/2025 3:[address] [facility] CO2 25 22 - 29 mmol/L 07/14/2025 3:30 PM [facility] CALCIUM 9.4 8.8 - 10.2 mg/dL 07/14/2025 3:30 PM [facility] BUN 12 8 - 23 mg/dL 07/14/2025 3:30 PM [facility] CREATININE 0.72 0.51 - 0.95 mg/dL 07/14/2025 3:30 PM [facility] GLUCOSE 91 74 - 99 mg/dL 07/14/2025 3:30 PM [facility] TOTAL PROTEIN 8.5 6.6 - 8.7 g/dL 07/14/2025 3:30 PM [facility] ALBUMIN 4.6 3.5 - 5.2 g/dL 07/14/2025 3:30 PM [facility] BILIRUBIN TOTAL 0.5 0.0 - 1.2 mg/dL 07/14/2025 3:30 PM [facility] ALKALINE PHOSPHATASE 119(H) 35 - 104 U/L 07/14/2025 3:30 PM [facility] AST 24 0 - 35 U/L 07/14/2025 3:30 PM [facility] ALT <5 0 - 35 U/L 07/14/2025 3:30 PM [facility] GFR >60 >=60 mL/min/1.7 3 sq meter 07/14/2025 3:30 PM [facility] Comment:eGFR calculated with 2020 CKD-EPI equation. Vegetarian diet, extremely high or low muscle mass, and may affect results. Cystatin C with Glomerular Filtration Rate is a suitable alternative for these patients. ANION GAP 13 5 - 20 mmol/L 07/14/2025 3:30 PM [facility] Blood Venipuncture / Unknown 07/14/2025 2:55 PM CDT 07/14/2025 3:09 PM CDT us Brunilda LANGFORDP CHEMISTRY ORDERABLES Final Result [facility] CLIA # [id number] [address] [place] [address] * US ANKLE PRESSURE INDEX (06/21/2025 4:17 PM CDT) Anatomical Region Laterality Modality Lower Extremity Ultrasound 06/21/2025 3:57 PM CDT Narrative 06/22/2025 1:37 PM CDT [facility] Cardiovascular Services Noninvasive Vascular Laboratory [address] [place] [address] Noninvasive Vascular Lab Patient: Trinidad Gibbs Study ID: [id number] Gender: F : 1960 Age: 65 Room: Height: Weight: BSA: Pt status: Study Date: 06/21/2025 Study Time: 03:57:47 PM BSA: Ordering: Janna Matthews Interpreting:Melody Jarrell Pharmacy Clinical Specialist: Krystin Burns Vascular Screening Summary Impression: No [...] pressure (keen): 78mm Hg - 89 - Prepared and Electronically Authenticated Melody Jarrell Confirmed 06/22/2025 13:37 Procedure Note Melody Jarrell DO - 06/22/2025 [facility] Cardiovascular Services Noninvasive Vascular Laboratory [address] [place] [address] Noninvasive Vascular Lab Patient: Trinidad Gibbs Study ID: [id number] Gender: F : 1960 Age: 65 Room: Height: Weight: BSA: Pt status: Study Date: 06/21/2025 Study Time: 03:57:47 PM BSA: Ordering: Janna Matthews Interpreting:[facility] Clinical Specialist: Krystin Burns Vascular Screening Summary Impression: No [...] 92 Prepared and Electronically Authenticated Melody Jarrell Confirmed 06/22/2025 13:37 Janna Nelson Byron SERVICE TESTER US ORDERABLES Final Re sult from Last 3 Months Insurance MEDICAID [place] MEDICARE PART A AND B Care Teams [employer] Certified Network Associate Relationship Specialty Start Date End Date Abdoul Marques MD [address] [phone] PCP - General Family Practice 06/05/25
--- OUTSIDE RECORDS SUMMARY | 2025-08-14 09:46 | XMS_ITS | Encounter Summary ---
Author Organization [facility] Address [address] [place] [address] Care Team Providers Care Clinical Instructor Name Role Phone Abdoul Marques MD Primary Care Provider [phone] Reason for Visit * Reason Comments Medication Review Encounter Details Date Type Department Care Team (Late st Contact Info) Description 08/10/2025 Telephone [facility] Medicine [address] [phone] Abdoul Marques MD [address] [phone] Medication Review Social History Tobacco Use Types Packs/Day Years [...] on file documented as of this encounter Miscellaneous Notes * Telephone Encounter - Blanche Ortega FNP - 08/10/2025 4:34 PM CDT I have sent in a refill of Bactrim. * Telephone Encounter - Danna Shultz - 08/10/2025 4:25 PM CDT Copied from [facility] #[id number]. Topic: Medication Request >> Aug 10, 2025 4:24 PM Danna Skelton wrote: Caller Name: Trinidad Gibbs Callback Number: Telephone Information: Medication (Ask patient/caregiver to spell if possible): sulfamethoxazole- trimethoprim (BACTRIM DS)800-160 mg tablet Note: All medication prescriptions can be requested using one [facility] Preferred Pharmacy: [facility] [place] Call Notes: Caller is requesting a new medication, which is not active on their medication list.- wound on right leg. Says she needs this again. Are you currently experiencing any symptoms? Yes, and has been seen by provider for the symptom(s) Is there an encounter open? No documented in this encounter Plan of Treatment Upcoming Encounters Date Type Department Care Team (Late st Contact Info) Description 08/24/2025 10:00 AM CDT Office Visit [facility] [place] [address] [phone] ByronJanna rios FNP [address] [phone] documented as of this encounter Visit Diagnoses Diagnosis Hematoma- Primary Contusion of unspecified site documented in this encounter Additional Health Concerns Infection Onset Date Last Indicated Resolved Time MRSA 07/14/2025 07/14/2025 08/13/2025 10:2 1 PM CDT documented as of this encounter Care Teams Clinical Instructor Relationship Specialty Start Date End Date Abdoul Marques MD [address] [phone] PCP - General Family Practice 06/05/25 documented as of this encounter
--- OUTSIDE RECORDS SUMMARY | 2025-08-14 09:46 | XMS_ITS | Encounter Summary ---
Author Organization [facility] Address [address] [place] [address] Care Team Providers Care Range Mechanic Name Role Phone Abdoul Maruqes MD Primary Care Provider [phone] Encounter Details Date Type Department Care Team (Late st Contact Info) Description 07/16/2025 Results Follow-Up [facility] Emergency Medicine [address] [address] Brunilda Yan FNP [address] [address] ANAEROBIC/AEROBIC CULTURE W GRAM STAIN, MRSA PCR RAPID SCREEN, BLOOD CULTURE, BLOOD CULTURE Social History Tobacco Use Types Packs/Day Years [...] as of this encounter Plan of Treatment Upcoming Encounters Date Type Department Care Team (Late st Contact Info) Description 08/24/2025 10:00 AM CDT Office Visit [facility] Medicine [place] [address] [phone] Janna Matthews FNP [address] [phone] documented as of this encounter Visit Diagnoses Not on filedocumented in this encounter Additional Health Concerns Infection Onset Date Last Indicated Resolved Time MRSA 07/14/2025 07/14/2025 08/13/2025 10:2 1 PM CDT documented as of this encounter Care Teams Range Mechanic Relationship Specialty Start Date End Date Abdoul Marques MD [address] [phone] PCP - General Family Practice 06/05/25 documented as of this encounter
--- NOTE | 2025-08-14 10:05 | W.ED.WOUNDLC ---
HPI - Wound/Laceration General: Chief Complaint: Wound/Laceration Stated Complaint: Surg site not healing right leg Time Seen by Provider: 08/14/25 10:05 History of Present Illness: 65-year-old female presents emergency room concerned about an open wound on her leg. She previous had a hematoma drained she is on oral antibiotics has been packing and treating the wound has become tender she not had any fever sweats or chills no drainage from the wound. Associated symptoms: Denies chills or fever(s) Related Data Home Medications ?Medication ?Instructions ?Recorded ?Confirmed naproxen sodium 220 mg tablet 440 mg PO BID PRN Pain 07/16/25 08/02/25 (Aleve) Previous Rx's ?Medication ?Instructions ?Recorded metoprolol succinate 100 mg 50 mg (1/2 x 100 mg) PO QAM #30 07/19/25 tablet,extended release 24 hr tabs nicotine 14 mg/24 hr daily 1 patch transdermal DAILY #14 ea 07/19/25 transdermal patch nicotine 21 mg/24 hr daily 1 patch transdermal DAILY #14 ea 07/19/25 transdermal patch nicotine 7 mg/24 hr daily 1 patch transdermal DAILY #14 ea 07/19/25 transdermal patch Allergies Allergy/AdvReac Type Severity Reaction Status Date / Time nicardipine (From Cardene) Allergy Unknown Verified 08/14/25 09:46 vancomycin Allergy Unknown Verified 08/14/25 09:46 Review of Systems Const: Denies: fever(s) or chills Card: Denies: chest pain Resp: Denies: dyspnea GI: Denies: abdominal pain : Denies: dysuria, urinary frequency or urinary urgency Musc: Denies: neck pain or back pain Skin/Breast: Denies: rash PFSH ED PFSH: Medical History Tobacco dependence due to cigarettes Hypertension Cellulitis and abscess of right lower extremity Social History Smoking and tobacco/nicotine status: never used tobacco/nicotine Alcohol intake: current Alcohol intake frequency: few times a week Alcohol type: beer Substance/Drug Use: current Other substance/drug use details: 1 hit a day Additional social history: Patient wants full CODE STATUS as discussed with Wilbert Maldonado MD on 07/16/2025 Lives independently: Yes Physical Exam Const: COMMON NORMALS: no acute distress GENERAL APPEARANCE: cooperative and comfortable ORIENTATION/CONSCIOUSNESS: Yes awake, Yes oriented to person, Yes oriented to place and Yes oriented to time HENMT: COMMON NORMALS: normocephalic, atraumatic and hearing grossly normal bilaterally HEAD & SCALP: normocephalic and atraumatic Resp: COMMON NORMALS: normal respiratory effort, No retractions, No use of accessory muscles and clear to auscultation bilaterally AUSCULTATION: clear to auscultation bilaterally Cardio: COMMON NORMALS: regular rate, regular rhythm and No murmurs present (Cardio) RATE: regular rate RHYTHM: regular rhythm GI: COMMON NORMALS: Soft to palpation and No hepatosplenomegaly present AUSCULTATION: Yes normoactive bowel sounds PALPATION: Yes Soft to palpation, No Tenderness to palpation present (GI), No Guarding due to palpation present (GI) and Yes No hepatosplenomegaly present Extremity: COMMON NORMALS: normal to inspection, capillary refill normal, no clubbing, cyanosis or edema, no calf tenderness and no pedal edema OTHER: Nonfluctuant thickened area of the right lower leg tender to the touch mucousy eschar at base wound is approximately 4 cm in length and 1 cm wide. No active bleeding no purulent drainage no localized erythema. Neuro: SENSORIUM/ORIENTATION: Yes oriented to person, Yes oriented to place and Yes oriented to time Skin: COMMON NORMALS: no rashes or lesions noted GENERAL SKIN EXAM: no rashes or lesions noted Course Vital Signs: Vital signs: Vital Signs Temperature 98.2 F 08/14/25 09:41 Pulse Rate 60 08/14/25 10:36 Respiratory Rate 16 08/14/25 10:18 Blood Pressure 145/79 08/14/25 10:36 Pulse Oximetry 97 08/14/25 10:36 Oxygen Delivery Me thod Room Air 08/14/25 09:41 MDM - Wound/Laceration Medical Decision Making Ultrasound does not show any definitive abscess. Wound is open has a mucousy eschar at its base. Will discharge patient home continue antibiotics continue wound care Lab Data Radiology Impressions Soft Tissue Ultrasound 08/14/25 10:10 IMPRESSION: Complex with along the anterolateral RIGHT lower extremity. No definite abscess. Most consistent with cellulitis. The previously described abscess on 07/16/2025 is not identified by ultrasound. All radiology interpretation(s) finalized by discharge Discharge Plan Discharge Patient Disposition: Home Clinical Impression: Cellulitis and abscess of right lower extremity Condition: Stable Prescriptions: No Action naproxen sodium [Aleve] 220 mg Tablet 440 mg PO BID PRN (Reason: Pain) metoprolol succinate 100 mg tablet extended release 24 hr 50 mg PO QAM Qty: 30 0RF nicotine 21 mg/24 hr Patch 24 Hour 1 patch transdermal DAILY Qty: 14 0RF nicotine 14 mg/24 hr patch 24 hour 1 patch transdermal DAILY Qty: 14 0RF nicotine 7 mg/24 hr patch 24 hour 1 patch transdermal DAILY Qty: 14 0RF Discharge Orders: Discharge ED (Routine); Ordered 08/14/25 Ordered By: Giovany Storey Discharge Diet: Usual diet Discharge Activity: Increase activity as tolerated Patient Instructions: Opioid Safety, Pain Management, Patient Portal & Jazmin Instructions Activity Restrictions/Additional Instructions: Thank you for choosing [facility] for your healthcare needs today. It is very important that you follow up as instructed or that you return to the Emergency Department should you have concerns or if your condition changes or worsens in any way. Emergency department visits are focused on emergent conditions, in some cases you may require further evaluation on an outpatient basis. You are seen emergency room concerning the wound on your right lower leg. The wound is healing by secondary intent this may take some time. We ultrasounded the area there is no sign of any drainable abscess at this time recommend continue the wound care you can apply moist heat to the area complete the antibiotics you are previously prescribed (Please note that included in your discharge packet is information concerning opioid safety and pain management. This information is given to all patients were discharged from the ER regardless of their discharge diagnosis or the medicines they usually take or are prescribed.) Print Language: Unknown Coding Level of Care Code ED Clay Puddler for Sully Urbina
--- NOTE | 2025-08-14 10:10 | US_ITS ---
WS: [id number] ULTRASOUND SOFT TISSUES RIGHT anterolateral lower extremity. HISTORY: R leg cellulitis COMPARISON: Prior CT 07/16/2025 TECHNIQUE: 2-D and color Doppler imaging is submitted. Complex fluid extending along the anterolateral RIGHT lower extremity. This is in the area of a previously described abscess. This is complex fluid but not encapsulated. Overall the extent of the fluid in the encapsulation has improved since 07/16/2025. US/US soft tissue/extremity [id number] IMPRESSION: Complex with along the anterolateral RIGHT lower extremity. No definite abscess . Most consistent with cellulitis. The previously described abscess on 07/16/2025 is not identified by ultrasound.
[2025-08-14 10:18] VITALS: BP 147/71; PULSE 63; RESP 16; O2SAT 98
[2025-08-14 10:36] VITALS: BP 145/79; PULSE 60; O2SAT 97
== END 2025-08-14 10:37 | disposition home or self-care (01) ==
PROVIDERS: Emergency Provider Family Medicine
DX: L03.115 Cellulitis of right lower limb (principal); L02.415 Cutaneous abscess of right lower limb; I10 Essential (primary) hypertension
CPT/HCPCS: 76882; 99284